=== PATIENT | male | born 1985 | race Caucasian/White ===

== ENCOUNTER 2018-03-20 01:09 | Inpatient (IN) | payer MEDICAID, OTHER ==
--- NOTE | 2018-03-20 01:53 | ED ---
Psych HPI - General Source: patient, RN notes reviewed Mode of arrival: ambulatory Limitations: no limitations <Pippa Carver - Last Filed: 03/20/18 03:43> <Mayi Jha - Last Filed: 03/20/18 05:16> - General Chief Complaint: Psychiatric Symptoms Stated Complaint: mental health Time Seen by Provider: 03/20/18 01:29 - History of Present Illness Initial Comments: This is a 32-year-old male who presents to the emergency department for mental health evaluation. Patient states that he was discharged from [facility] this past Monday. He states he is from [place], [place]. Patient states for the past couple of days he has been wandering around [place]. He states that today, he received multiple rides and walked from [place] to [place]. Patient reports being hospitalized 6 times since June for mental health. He states that while at [facility] his medications were changed around. He states that they stopped his Seroquel and started him on Strattera. Patient states that he did not like the way Strattera made him feel but that the staff at [facility] would not listen to him. Patient states that throughout the day today he has been having suicidal and homicidal thoughts. Patient states he is not normally an aggressive person and having homicidal thoughts are not normal for him. He reports having thoughts of throwing himself in front of traffic. Patient also reports auditory hallucinations. He states that he hears random, multiple voices but cannot make out what they're saying. He denies visual hallucinations. He denies alcohol or illicit drug use. 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 Patient states he has not had his medication since Monday when he was discharged. Patient denies any other medical issues. Denies any recent illnesses or infections. Denies recent fevers or chills, chest pain or shortness of breath, abdominal pain, nausea or vomiting. (Pippa Carver) - Related Data Allergies Allergy/AdvReac Type Severity Reaction Status Date / Time fentanyl Allergy Unknown Verified 03/20/18 01:29 haloperidol [From Haldol] Allergy Swelling Verified 03/20/18 01:29 Review of Systems ROS Other: All systems not noted in ROS Statement are negative. <Wen,Pippa M - Last Filed: 03/20/18 03:43> ROS Other: All systems not noted in ROS Statement are negative. <Mayi Jha P - Last Filed: 03/20/18 05:16> ROS Statement: Those systems with pertinent positive or pertinent negative responses have been documented in the HPI. 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 HEENT: Head atraumatic, normocephalic. Pupils are equal, round and reactive to light. Extraocular movements intact. Oropharynx moist without erythema or exudate. Neck: Supple. Normal ROM. Cardiovascular: Regular rate and rhythm. No murmurs, rubs or gallops. Chest symmetrical. Respiratory: Lungs clear to auscultation bilaterally. No wheezes, rales or rhonchi. Normal respiratory effort with no use of accessory muscles. Musculoskeletal: Normal ROM, no tenderness bilateral upper and lower extremities. Ambulating normally. Skin: [place], warm and dry without rashes or lesions. Neurological: Alert and oriented x3. CN II-XII grossly intact. Speech is fluent and answers are appropriate. No focal neuro deficits. Psychiatric: Anxious, pacing around the room. Talkative and forthcoming. (Pippa Carver) Course <Pippa Carver M - Last Filed: 03/20/18 03:43> <Mayi Jha P - Last Filed: 03/20/18 05:16> Vital Signs 03/20/18 01:23 Temperature 98 F Pulse Rate 107 H Respiratory 16 Rate Blood Pressure 127/81 O2 Sat by Pulse 98 Oximetry - Reevaluation(s) Reevaluation #1: At this time, laboratory studies are reviewed. Patient's Depakote level is subtherapeutic at 11.9. Patient admits to taking Depakote 500 mg 3 times per day. Scheduled dosing for Depakote is ordered. Patient will be given 1000 mg stat. 03/20/18 03:32 (Pippa Carver) Medical Decision Making - Lab Data Result diagrams: 03/20/18 02:40 03/20/18 02:40 <Pippa Carver - Last Filed: 03/20/18 03:43> - Lab Data Result diagrams: 03/20/18 02:40 03/20/18 02:40 <Mayi Jha - Last Filed: 03/20/18 05:16> - Medical Decision Making This is a 32-year-old male who presents to the emergency department for mental health evaluation. Patient was recently released from [facility] where patient states he was started on Strattera. He states he has been wandering around [place] for the past couple of days and walked/hitchhiked to [place] today. Patient reports suicidal and homicidal ideation. He denies any illicit drug use , however a urine drug screen reveals evidence for methamphetamine, amphetamine , benzodiazepines and marijuana. Patient reports a history of pseudoseizures. He states he takes Depakote 500mg 3 times per day. He reports not taking Depakote since being at [facility]. Level is subtherapeutic at 11.9. Scheduled and stat order for Depakote is placed. Patient was medically cleared and evaluated by [facility]. (Pippa Carver) She was seen and evaluated by [facility], they recommend discharge home with outpatient follow-up. Patient is agreeable. (Mayi Jha) - Lab Data Lab Results 03/20/18 03/20/18 03/20/18 Range/Units 02:40 02:40 02:51 WBC 5.7 (3.8-10.6) k/uL RBC 4.29 L (4.30-5.90) m/uL Hgb 13.4 (13.0-17.5) gm/dL Hct 41.9 (39.0-53.0) % MCV 97.7 (80.0-100.0) fL MCH 31.3 (25.0-35.0) pg MCHC 32.0 (31.0-37.0) g/dL RDW 13.3 (11.5-15.5) % Plt Count 211 (150-450) k/uL Neutrophils % 58 % Lymphocytes % 31 % Monocytes % 7 % Eosinophils % 1 % Basophils % 0 % Neutrophils # 3.3 (1.3-7.7) k/uL Lymphocytes # 1.8 (1.0-4.8) k/uL Monocytes # 0.4 (0-1.0) k/uL Eosinophils # 0.1 (0-0.7) k/uL Basophils # 0.0 (0-0.2) k/uL Sodium 140 (137-145) mmol/L Potassium 3.9 (3.5-5.1) mmol/L Chloride 109 H (98-107) mmol/L Carbon Dioxide 24 (22-30) mmol/L Anion Gap 7 mmol/L BUN 23 H (9-20) mg/dL Creatinine 0.69 (0.66-1.25) mg/dL Est GFR (CKD-EPI)AfAm >90 (>60 ml/min/1.73 sqM) Est GFR (CKD-EPI)NonAf >90 (>60 ml/min/1.73 sqM) Glucose 89 (74-99) mg/dL Calcium 9.4 (8.4-10.2) mg/dL Total Bilirubin 0.4 (0.2-1.3) mg/dL AST 47 (17-59) U/L ALT 39 (21-72) U/L Alkaline Phosphatase 52 (38-126) U/L Total Protein 6.4 (6.3-8.2) g/dL Albumin 3.8 (3.5-5.0) g/dL Urine Color Yellow Urine Appearance Clear (Clear) Urine pH 6.5 (5.0-8.0) Ur Specific [place] 1.025 (1.001-1.035) Urine Protein Trace H (Negative) Urine Glucose (UA) Negative (Negative) Urine Ketones Negative (Negative) Urine Blood Negative (Negative) Urine Nitrite Negative (Negative) Urine Bilirubin Negative (Negative) Urine Urobilinogen 2.0 (<2.0) mg/dL Ur Leukocyte Esterase Negative (Negative) Urine Opiates Screen Not Detected (NotDetected) Ur Oxycodone Screen Not Detected (NotDetected) Urine Methadone Screen Not Detected (NotDetected) Ur Propoxyphene Screen Not Detected (NotDetected) Ur Barbiturates Screen Not Detected (NotDetected) Valproic Acid 11.9 ug/mL U Tricyclic Antidepress Not Detected (NotDetected) Ur Phencyclidine Scrn Not Detected (NotDetected) Ur Amphetamines Screen Detected H (NotDetected) U Methamphetamines Scrn Detected H (NotDetected) U Benzodiazepines Scrn Detected H (NotDetected) Urine Cocaine Screen Not Detected (NotDetected) U Marijuana (THC) Screen Detected H (NotDetected) Disposition <Pippa Carver M - Last Filed: 03/20/18 03:43> Is patient prescribed a controlled substance at d/c from ED?: No <Mayi Jha P - Last Filed: 03/20/18 05:16> Clinical Impression: Depression Disposition: HOME SELF-CARE Condition: Good Instructions: Depression (ED) Referrals: None,Stated [Primary Care Provider] - 1-2 days
[2018-03-20 03:05] LABS: Basophils % (A) 0 %; Eosinophils # (A) 0.1 k/uL (0-0.7); Eosinophils % (A) 1 %; HCT 41.9 % (39.0-53.0); HGB 13.4 gm/dL (13.0-17.5); Lymphocytes # (A) 1.8 k/uL (1.0-4.8); Lymphocytes % (A) 31 %; MCH 31.3 pg (25.0-35.0); MCV 97.7 fL (80.0-100.0); Mean Platelet Volume 7.9; Monocytes # (A) 0.4 k/uL (0-1.0); Monocytes % (A) 7 %; Neutrophils # (A) 3.3 k/uL (1.3-7.7); Neutrophils % (A) 58 %; Platelet Count 211 k/uL (150-450); RBC 4.29 m/uL (4.30-5.90); RDW 13.3 % (11.5-15.5); WBC 5.7 k/uL (3.8-10.6)
[2018-03-20 03:06] LABS: Appearance,Urine Clear (Clear); Bilirubin,Urine Negative (Negative); Blood,Urine Negative (Negative); Color,Urine Yellow; Glucose,Urine (UA) Negative (Negative); Ketones,Urine Negative (Negative); Leukocyte Esterase,Urine Negative (Negative); Nitrite,Urine Negative (Negative); PH, Urine 6.5 (5.0-8.0); Protein,Urine Trace (Negative); Specific Gravity,Urine 1.025 (1.001-1.035)
[2018-03-20 03:15] LABS: ALT 39 U/L (21-72); AST 47 U/L (17-59); Albumin 3.8 g/dL (3.5-5.0); Alkaline Phosphatase 52 U/L (38-126); Anion Gap 7 mmol/L; Blood Urea Nitrogen 23 mg/dL (9-20); Calcium 9.4 mg/dL (8.4-10.2); Carbon Dioxide 24 mmol/L (22-30); Chloride 109 mmol/L (98-107); Glucose 89 mg/dL (74-99); Potassium 3.9 mmol/L (3.5-5.1); Sodium 140 mmol/L (137-145); Total Bilirubin 0.4 mg/dL (0.2-1.3); Total Protein 6.4 g/dL (6.3-8.2)
[2018-03-20 03:20] LABS: Valproic Acid (Depakene) 11.9 ug/mL
[2018-03-20 03:21] LABS: Amphetamine Screen,Urine Detected (NotDetected); Barbiturate Screen,Urine Not Detected (NotDetected); Benzodiazepines Screen,Urine Detected (NotDetected); Cocaine Screen,Urine Not Detected (NotDetected); Methadone Screen, Urine Not Detected (NotDetected); Opiate Screen,Urine Not Detected (NotDetected); Oxycodone Screen, Urine Not Detected (NotDetected); Phencyclidine Screen,Urine Not Detected (NotDetected); Tricyclic Antidepressant,Urine Not Detected (NotDetected); Urn Cannabinoid Scrn Detected (NotDetected)
[2018-03-20] MEDS ORDERED: DIVALPROEX 500 MG TABLET.DR PO STA (03:31)
[2018-03-20] MEDS ORDERED: MAGNESIUM HYDROXIDE 2,400 MG/10 ML CUP PO PRN (07:19)
[2018-03-20] MEDS: NICOTINE 14MG/24HR PATCH TRANSDERM SCH (08:04)
[2018-03-20] MEDS: DIVALPROEX 500 MG TABLET.DR PO SCH ×4 (08:05→21:21)
[2018-03-20 10:53] LABS: Basophils % (A) 1 %; Eosinophils # (A) 0.1 k/uL (0-0.7); Eosinophils % (A) 2 %; HCT 43.3 % (39.0-53.0); HGB 14.4 gm/dL (13.0-17.5); Lymphocytes # (A) 1.5 k/uL (1.0-4.8); Lymphocytes % (A) 30 %; MCH 32.7 pg (25.0-35.0); MCHC 33.3 g/dL (31.0-37.0); MCV 98.2 fL (80.0-100.0); Mean Platelet Volume 7.4; Monocytes # (A) 0.5 k/uL (0-1.0); Monocytes % (A) 9 %; Neutrophils # (A) 2.8 k/uL (1.3-7.7); Neutrophils % (A) 55 %; Platelet Count 233 k/uL (150-450); RBC 4.41 m/uL (4.30-5.90); RDW 13.3 % (11.5-15.5)
[2018-03-20 11:01] LABS: ALT 42 U/L (21-72); AST 47 U/L (17-59); Albumin 4.1 g/dL (3.5-5.0); Alkaline Phosphatase 54 U/L (38-126); Anion Gap 9 mmol/L; Blood Urea Nitrogen 22 mg/dL (9-20); Calcium 9.7 mg/dL (8.4-10.2); Carbon Dioxide 28 mmol/L (22-30); Chloride 103 mmol/L (98-107); Glucose 100 mg/dL (74-99); Potassium 4.3 mmol/L (3.5-5.1); Sodium 140 mmol/L (137-145); Total Bilirubin 0.5 mg/dL (0.2-1.3)
[2018-03-20 11:07] LABS: Valproic Acid (Depakene) <10.0 ug/mL
[2018-03-20] MEDS ORDERED: diphenhydrAMINE 50 MG/ML 1 ML VIAL IM PRN (11:55)
--- NOTE | 2018-03-20 12:02 | P.HP ---
Psychiatric H&P - . H&P Date: 03/20/18 History & Physical: Allergies Allergy/AdvReac Type Severity Reaction Status Date / Time fentanyl Allergy Unknown Verified 03/20/18 09:14 haloperidol [From Haldol] Allergy Swelling Verified 03/20/18 09:14 Vital Signs Temp 97.3 F L 03/20/18 09:28 Pulse 92 03/20/18 09:28 Resp 20 03/20/18 09:28 BP 124/82 03/20/18 05:49 Pulse Ox 98 03/20/18 09:28 Intake & Output 03/19/18 03/20/18 03/20/18 18:59 06:59 18:59 Weight 78.471 kg 72.66 kg Laboratory Last Values WBC 5.0 k/uL (3.8-10.6) 03/20/18 10:23 RBC 4.41 m/uL (4.30-5.90) 03/20/18 10:23 Hgb 14.4 gm/dL (13.0-17.5) 03/20/18 10:23 Hct 43.3 % (39.0-53.0) 03/20/18 10:23 MCV 98.2 fL (80.0-100.0) 03/20/18 10:23 MCH 32.7 pg (25.0-35.0) 03/20/18 10:23 MCHC 33.3 g/dL (31.0-37.0) 03/20/18 10:23 RDW 13.3 % (11.5-15.5) 03/20/18 10:23 Plt Count 233 k/uL (150-450) 03/20/18 10:23 Neutrophils % 55 % 03/20/18 10:23 Lymphocytes % 30 % 03/20/18 10:23 Monocytes % 9 % 03/20/18 10:23 Eosinophils % 2 % 03/20/18 10:23 Basophils % 1 % 03/20/18 10:23 Neutrophils # 2.8 k/uL (1.3-7.7) 03/20/18 10:23 Lymphocytes # 1.5 k/uL (1.0-4.8) 03/20/18 10:23 Monocytes # 0.5 k/uL (0-1.0) 03/20/18 10:23 Eosinophils # 0.1 k/uL (0-0.7) 03/20/18 10:23 Basophils # 0.0 k/uL (0-0.2) 03/20/18 10:23 Sodium 140 mmol/L (137-145) 03/20/18 10:23 Potassium 4.3 mmol/L (3.5-5.1) 03/20/18 10:23 Chloride 103 mmol/L (98-107) 03/20/18 10:23 Carbon Dioxide 28 mmol/L (22-30) 03/20/18 10:23 Anion Gap 9 mmol/L 03/20/18 10:23 BUN 22 mg/dL (9-20) H 03/20/18 10:23 Creatinine 0.75 mg/dL (0.66-1.25) 03/20/18 10:23 Est GFR (CKD-EPI)AfAm >90 (>60 ml/min/1.73 sqM) 03/20/18 10:23 Est GFR (CKD-EPI)NonAf >90 (>60 ml/min/1.73 sqM) 03/20/18 10:23 Glucose 100 mg/dL (74-99) H 03/20/18 10:23 Calcium 9.7 mg/dL (8.4-10.2) 03/20/18 10:23 Total Bilirubin 0.5 mg/dL (0.2-1.3) 03/20/18 10:23 AST 47 U/L (17-59) 03/20/18 10:23 ALT 42 U/L (21-72) 03/20/18 10:23 Alkaline Phosphatase 54 U/L (38-126) 03/20/18 10:23 Total Protein 7.0 g/dL (6.3-8.2) 03/20/18 10:23 Albumin 4.1 g/dL (3.5-5.0) 03/20/18 10:23 TSH 1.660 mIU/L (0.465-4.680) 03/20/18 10:23 Urine Color Yellow 03/20/18 02:51 Urine Appearance Clear (Clear) 03/20/18 02:51 Urine pH 6.5 (5.0-8.0) 03/20/18 02:51 Ur Specific [place] 1.025 (1.001-1.035) 03/20/18 02:51 Urine Protein Trace (Negative) H 03/20/18 02:51 Urine Glucose (UA) Negative (Negative) 03/20/18 02:51 Urine Ketones Negative (Negative) 03/20/18 02:51 Urine Blood Negative (Negative) 03/20/18 02:51 Urine Nitrite Negative (Negative) 03/20/18 02:51 Urine Bilirubin Negative (Negative) 03/20/18 02:51 Urine Urobilinogen 2.0 mg/dL (<2.0) 03/20/18 02:51 Ur Leukocyte Esterase Negative (Negative) 03/20/18 02:51 Urine Opiates Screen Not Detected (NotDetected) 03/20/18 02:51 Ur Oxycodone Screen Not Detected (NotDetected) 03/20/18 02:51 Urine Methadone Screen Not Detected (NotDetected) 03/20/18 02:51 Ur Propoxyphene Screen Not Detected (NotDetected) 03/20/18 02:51 Ur Barbiturates Screen Not Detected (NotDetected) 03/20/18 02:51 Valproic Acid <10.0 ug/mL 03/20/18 10:23 U Tricyclic Antidepress Not Detected (NotDetected) 03/20/18 02:51 Ur Phencyclidine Scrn Not Detected (NotDetected) 03/20/18 02:51 Ur Amphetamines Screen Detected (NotDetected) H 03/20/18 02:51 U Methamphetamines Scrn Detected (NotDetected) H 03/20/18 02:51 U Benzodiazepines Scrn Detected (NotDetected) H 03/20/18 02:51 Urine Cocaine Screen Not Detected (NotDetected) 03/20/18 02:51 U Marijuana (THC) Screen Detected (NotDetected) H 03/20/18 02:51 Assessment and Plan Assessment: General Chief Complaint: Psychiatric Symptoms Stated Complaint: mental health Time Seen by Provider: 03/20/18 - History of Present Illness Initial Comments: This is a 32-year-old male who presents to the emergency department for mental health evaluation. Patient states that he was discharged from [facility] this past Monday. He states he is from [place], [place]. Patient states for the past couple of days he has been wandering around [place]. He states that today, he received multiple rides and walked from [place] to [place]. Patient reports being hospitalized 6 times since June for mental health. He states that while at [facility] his medications were changed around. He states that they stopped his Seroquel and started him on Strattera. Patient states that he did not like the way Strattera made him feel but that the staff at [facility] would not listen to him. Patient states that throughout the day today he has been having suicidal and homicidal thoughts. Patient states he is not normally an aggressive person and having homicidal thoughts are not normal for him. He reports having thoughts of throwing himself in front of traffic. Patient also reports auditory hallucinations. He states that he hears random, multiple voices but cannot make out what they're saying. He denies visual hallucinations. He denies alcohol or illicit drug use. 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 Patient states he has not had his medication since Monday when he was discharged. Patient denies any other medical issues. Denies any recent illnesses or infections. Denies recent fevers or chills, chest pain or shortness of breath, abdominal pain, nausea or vomiting. Musculoskeletal Examination - Abnormal/Involuntary Movements: [none] Strength: [greater than antigravity (greater than/equal to 3/5) in all extremities] Muscle Tone: [no impairment] Gait: [grossly normal] Station: [grossly normal] Mental Status Examination - General Appearance: [disheveled, casual, bizarre, appears stated age Speech/Language: [rapid, rambled, hesitant, monotone, expressive, soft Attitude/Behavior: [ guarded, irritable, withdrawn, indifferent, other] Mood: [ depressed, euphoric, anxious, elated, irritable, angry, fearful, hopelessness] Affect: [ flat, incongruent, labile] Orientation: [not time, person, not place situation] Thought Content: [delusions] Risk Factors: [suicidal (ideations, plan) Perception: [ hallucinations Thought Processes: [ concrete] Concentration/Attention Span: [, impaired] [Per observation and interview with the patient] Recent Memory: [impaired] [0out of 3 in 3 minutes] Remote Memory: [ impaired] [past events, as related history] Intelligence: [below averag] [based on history, based on vocabulary, syntax, grammar, and content] Judgement: [poor] [per patient's behavior/history of present illness] Insight: [ poor] [understanding severity of illness/history of present illness] Admitting Diagnosis: [bipolar affective disorder acute psychosis] Patient Strengths - Personal Skills: [] Achievements: [] Able to vocalize needs: [x] Patient Limitations: [medication, non-compliance, pathological/unsupported environment, no interests, intellectual impairment, complicated medical illness , legal issues, lack of social supports, other] Initial Plan of Care: [admission to psych unit, medical evaluation and medicine , social work, recreation therapy mora and milieu ] Estimated Length of Stay: [5-7] Initial Discharge Plan: [home, [facility], referred to therapist, partial hospital, intensive outpatient, residential placement, other] Prognosis: [good, fair, guarded] Justification for Inpatient Hospitalization - [Hallucinations, delusions, agitation, anxiety, depression resulting in significant loss of functioning.] [Dangerous to self, others, or property with need for controlled environment.] [Emotional or behavioral conditions and complications requiring 24 hour medical and nursing care.] [Need for special drug therapy, or other therapeutic program requiring continuous hospitalization.] [Failure of social or occupational functioning.] [Inability to meet basic life and health needs.] [Legally mandated admission.] [ start prolixin, prn thorazine olus benadryl and depakote Time with Patient: Greater than 30
--- NOTE | 2018-03-20 16:51 | P.PN ---
Progress Note - Text Progress Note Date: 03/20/18 I attempted to see the patient around 4:15PM. Patient is laying on the floor along the hallway. Patient states he has had his blood work done and has no medical issues. Patient refuses to see me for a medical H&P. Nursing team and staff were notified and they will contact us for any specific concerns or if patient agreeable in the future.
[2018-03-20] MEDS: ACETAMINOPHEN TAB 325 MG TAB PO PRN (22:12)
[2018-03-21 02:01] LABS: Cholesterol 177 mg/dL (<200); HDL Cholesterol 41 mg/dL (40-60); LDL Cholesterol,Calculated 127 mg/dL (0-99); Triglycerides 46 mg/dL (<150)
[2018-03-21] MEDS: ACETAMINOPHEN TAB 325 MG TAB PO PRN ×2 (02:57→14:19)
[2018-03-21] MEDS: NICOTINE 14MG/24HR PATCH TRANSDERM SCH (08:54)
[2018-03-21] MEDS: DIVALPROEX 500 MG TABLET.DR PO SCH ×3 (08:54→20:45)
[2018-03-21] MEDS ORDERED: HALOPERIDOL LACTATE 5 MG/ML 1 ML VIAL IM PRN (09:47)
--- NOTE | 2018-03-21 11:58 | P.PN ---
Subjective Progress Note Date: 03/21/18 Principal diagnosis: Schizoaffective Today he is resistant to any medications refuse medications last night and talked with him about his on a court order for psychiatric treatment and he must take medications Objective - Vital Signs Vital signs: Vital Signs Temp 97.3 F L 03/20/18 09:28 Pulse 110 H 03/20/18 18:44 Resp 18 03/20/18 18:44 BP 126/85 03/20/18 18:44 Pulse Ox 98 03/20/18 09:28 Intake & Output 03/20/18 03/21/18 03/21/18 18:59 06:59 18:59 Weight 72.66 kg - Labs CBC & Chem 7: 03/20/18 10:23 03/20/18 10:23 Labs: Abnormal Lab Results - Last 24 Hours (Table) 03/20/18 Range/Units 10:28 LDL Cholesterol, Calc 127 H (0-99) mg/dL Assessment and Plan Assessment: General Chief Complaint: Psychiatric Symptoms Stated Complaint: mental health Time Seen by Provider: 03/20/18 - History of Present Illness Initial Comments: This is a 32-year-old male who presents to the emergency department for mental health evaluation. Patient states that he was discharged from [facility] this past Monday. He states he is from [place], [place]. Patient states for the past couple of days he has been wandering around [place]. He states that today, he received multiple rides and walked from [place] to [place]. Patient reports being hospitalized 6 times since June for mental health. He states that while at [facility] his medications were changed around. He states that they stopped his Seroquel and started him on Strattera. Patient states that he did not like the way Strattera made him feel but that the staff at [facility] would not listen to him. Patient states that throughout the day today he has been having suicidal and homicidal thoughts. Patient states he is not normally an aggressive person and having homicidal thoughts are not normal for him. He reports having thoughts of throwing himself in front of traffic. Patient also reports auditory hallucinations. He states that he hears random, multiple voices but cannot make out what they're saying. He denies visual hallucinations. He denies alcohol or illicit drug use. 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 Patient states he has not had his medication since Monday when he was discharged. Patient denies any other medical issues. Denies any recent illnesses or infections. Denies recent fevers or chills, chest pain or shortness of breath, abdominal pain, nausea or vomiting. Musculoskeletal Examination - Abnormal/Involuntary Movements: [none] Strength: [greater than antigravity (greater than/equal to 3/5) in all extremities] Muscle Tone: [no impairment] Gait: [grossly normal] Station: [grossly normal] Mental Status Examination - General Appearance: [disheveled, casual, bizarre, appears stated age Speech/Language: [rapid, rambled, hesitant, monotone, expressive, soft Attitude/Behavior: [ guarded, irritable, withdrawn, indifferent, other] Mood: [ depressed, euphoric, anxious, elated, irritable, angry, fearful, hopelessness] Affect: [ flat, incongruent, labile] Orientation: [not time, person, not place situation] Thought Content: [delusions] Risk Factors: [suicidal (ideations, plan) Perception: [ hallucinations Thought Processes: [ concrete] Concentration/Attention Span: [, impaired] [Per observation and interview with the patient] Recent Memory: [impaired] [0out of 3 in 3 minutes] Remote Memory: [ impaired] [past events, as related history] Intelligence: [below averag] [based on history, based on vocabulary, syntax, grammar, and content] Judgement: [poor] [per patient's behavior/history of present illness] Insight: [ poor] [understanding severity of illness/history of present illness] Admitting Diagnosis: [bipolar affective disorder acute psychosis] Patient Strengths - Personal Skills: [] Achievements: [] Able to vocalize needs: [x] Patient Limitations: [medication, non-compliance, pathological/unsupported environment, no interests, intellectual impairment, complicated medical illness , legal issues, lack of social supports, other] Initial Plan of Care: [admission to psych unit, medical evaluation and medicine , social work, recreation therapy mora and milieu ] Estimated Length of Stay: [5-7] Initial Discharge Plan: [home, [facility], referred to therapist, partial hospital, intensive outpatient, residential placement, other] Prognosis: [good, fair, guarded] Justification for Inpatient Hospitalization - [Hallucinations, delusions, agitation, anxiety, depression resulting in significant loss of functioning.] [Dangerous to self, others, or property with need for controlled environment.] [Emotional or behavioral conditions and complications requiring 24 hour medical and nursing care.] [Need for special drug therapy, or other therapeutic program requiring continuous hospitalization.] [Failure of social or occupational functioning.] [Inability to meet basic life and health needs.] [Legally mandated admission.] [ (1) Schizoaffective disorder, bipolar type Current Visit: Yes Status: Acute Priority: High Code(s): F25.0 - SCHIZOAFFECTIVE DISORDER, BIPOLAR TYPE SNOMED Code(s): 94296997 Plan: Discussed health care plan today who started out on 3 mg with the daily titration to reach maximum 9 mg and converted into injectable
[2018-03-21] MEDS ORDERED: PALIPERIDONE 6 MG TAB.ER.24 PO SCH (21:00)
[2018-03-22] MEDS: DIVALPROEX 500 MG TABLET.DR PO SCH ×3 (09:17→21:38)
[2018-03-22] MEDS: NICOTINE 14MG/24HR PATCH TRANSDERM SCH (09:17)
--- NOTE | 2018-03-22 12:34 | P.PN ---
Subjective Progress Note Date: 03/22/18 Principal diagnosis: Schizoaffective Today he is resistant to any medications refuse medications last night and talked with him about his on a court order for psychiatric treatment and he must take medications Objective - Vital Signs Vital signs: Vital Signs Temp 97.3 F L 03/20/18 09:28 Pulse 117 H 03/21/18 20:47 Resp 20 03/21/18 14:19 BP 131/94 03/21/18 20:47 Pulse Ox 98 03/20/18 09:28 - Labs CBC & Chem 7: 03/20/18 10:23 03/20/18 10:23 Assessment and Plan Assessment: General Chief Complaint: Psychiatric Symptoms Stated Complaint: mental health Time Seen by Provider: 03/20/18 - History of Present Illness Initial Comments: This is a 32-year-old male who presents to the emergency department for mental health evaluation. Patient states that he was discharged from [facility] this past Monday. He states he is from [place], [place]. Patient states for the past couple of days he has been wandering around [place]. He states that today, he received multiple rides and walked from [place] to [place]. Patient reports being hospitalized 6 times since June for mental health. He states that while at [facility] his medications were changed around. He states that they stopped his Seroquel and started him on Strattera. Patient states that he did not like the way Strattera made him feel but that the staff at [facility] would not listen to him. Patient states that throughout the day today he has been having suicidal and homicidal thoughts. Patient states he is not normally an aggressive person and having homicidal thoughts are not normal for him. He reports having thoughts of throwing himself in front of traffic. Patient also reports auditory hallucinations. He states that he hears random, multiple voices but cannot make out what they're saying. He denies visual hallucinations. He denies alcohol or illicit drug use. 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 Patient states he has not had his medication since Monday when he was discharged. Patient denies any other medical issues. Denies any recent illnesses or infections. Denies recent fevers or chills, chest pain or shortness of breath, abdominal pain, nausea or vomiting. Musculoskeletal Examination - Abnormal/Involuntary Movements: [none] Strength: [greater than antigravity (greater than/equal to 3/5) in all extremities] Muscle Tone: [no impairment] Gait: [grossly normal] Station: [grossly normal] Mental Status Examination - General Appearance: [disheveled, casual, bizarre, appears stated age Speech/Language: [rapid, rambled, hesitant, monotone, expressive, soft Attitude/Behavior: [ guarded, irritable, withdrawn, indifferent, other] Mood: [ depressed, euphoric, anxious, elated, irritable, angry, fearful, hopelessness] Affect: [ flat, incongruent, labile] Orientation: [not time, person, not place situation] Thought Content: [delusions] Risk Factors: [suicidal (ideations, plan) Perception: [ hallucinations Thought Processes: [ concrete] Concentration/Attention Span: [, impaired] [Per observation and interview with the patient] Recent Memory: [impaired] [0out of 3 in 3 minutes] Remote Memory: [ impaired] [past events, as related history] Intelligence: [below averag] [based on history, based on vocabulary, syntax, grammar, and content] Judgement: [poor] [per patient's behavior/history of present illness] Insight: [ poor] [understanding severity of illness/history of present illness] Admitting Diagnosis: [bipolar affective disorder acute psychosis and PTSD Patient Strengths - Personal Skills: [] Achievements: [] Able to vocalize needs: [x] Patient Limitations: [medication, non-compliance, pathological/unsupported environment, no interests, intellectual impairment, complicated medical illness , legal issues, lack of social supports, other] Initial Plan of Care: [admission to psych unit, medical evaluation and medicine , social work, recreation therapy mora and milieu ] Estimated Length of Stay: [5-7] Initial Discharge Plan: [home, [facility], referred to therapist, partial hospital, intensive outpatient, residential placement, other] Prognosis: [good, fair, guarded] Justification for Inpatient Hospitalization - [Hallucinations, delusions, agitation, anxiety, depression resulting in significant loss of functioning.] [Dangerous to self, others, or property with need for controlled environment.] [Emotional or behavioral conditions and complications requiring 24 hour medical and nursing care.] [Need for special drug therapy, or other therapeutic program requiring continuous hospitalization.] [Failure of social or occupational functioning.] [Inability to meet basic life and health needs.] [Legally mandated admission.] [ (1) Schizoaffective disorder, bipolar type Current Visit: Yes Status: Acute Priority: High Code(s): F25.0 - SCHIZOAFFECTIVE DISORDER, BIPOLAR TYPE SNOMED Code(s): 88533741 Plan: Discussed health care plan today who started out on 3 mg with the daily titration to reach maximum 9 mg and converted into injectable will add clonidine 0.2 mg 3 times a day for anxiety and elevated heart rate Time with Patient: Less than 30
[2018-03-22] MEDS: cloNIDine HCL 0.2 MG TAB PO SCH ×2 (16:14→21:38)
[2018-03-22] MEDS: PALIPERIDONE 3 MG TAB.ER.24 PO SCH (21:38)
[2018-03-23] MEDS: DIVALPROEX 500 MG TABLET.DR PO SCH ×3 (11:52→21:34)
[2018-03-23] MEDS: cloNIDine HCL 0.2 MG TAB PO SCH ×3 (11:52→21:34)
[2018-03-23] MEDS: NICOTINE 14MG/24HR PATCH TRANSDERM SCH (11:55)
--- NOTE | 2018-03-23 12:12 | P.PN ---
Subjective Progress Note Date: 03/23/18 Principal diagnosis: Schizoaffective Today he is resistant to any medications refuse medications last night and talked with him about his on a court order for psychiatric treatment and he must take medications Objective - Vital Signs Vital signs: Vital Signs Temp 98.1 F 03/23/18 06:44 Pulse 110 H 03/23/18 06:44 Resp 18 03/23/18 06:44 BP 117/77 03/23/18 06:44 Pulse Ox 98 03/20/18 09:28 - Labs CBC & Chem 7: 03/20/18 10:23 03/20/18 10:23 Assessment and Plan Assessment: Mental Status Examination - General Appearance: [disheveled, casual, bizarre, appears stated age Speech/Language: [rapid, rambled, hesitant, monotone, expressive, soft Attitude/Behavior: [ guarded, irritable, withdrawn, indifferent, other] Mood: [ depressed, euphoric, anxious, elated, irritable, angry, fearful, hopelessness] Affect: [ flat, incongruent, labile] Orientation: [not time, person, not place situation] Thought Content: [delusions] Risk Factors: [suicidal (ideations, plan) Perception: [ hallucinations Thought Processes: [ concrete] Concentration/Attention Span: [, impaired] [Per observation and interview with the patient] Recent Memory: [impaired] [0out of 3 in 3 minutes] Remote Memory: [ impaired] [past events, as related history] Intelligence: [below averag] [based on history, based on vocabulary, syntax, grammar, and content] Judgement: [poor] [per patient's behavior/history of present illness] Insight: [ poor] [understanding severity of illness/history of present illness] Admitting Diagnosis: [bipolar affective disorder acute psychosis and PTSD Patient Strengths - Personal Skills: [] Achievements: [] Able to vocalize needs: [x] Patient Limitations: [medication, non-compliance, pathological/unsupported environment, no interests, intellectual impairment, complicated medical illness , legal issues, lack of social supports, other] Initial Plan of Care: [admission to psych unit, medical evaluation and medicine , social work, recreation therapy mora and milieu ] Estimated Length of Stay: [5-7] Initial Discharge Plan: [home, [facility], referred to therapist Prognosis: [good] Justification for Inpatient Hospitalization - [Hallucinations, delusions, agitation, anxiety, depression resulting in significant loss of functioning.] [Dangerous to self, others, or property with need for controlled environment.] [Emotional or behavioral conditions and complications requiring 24 hour medical and nursing care.] [Need for special drug therapy, or other therapeutic program requiring continuous hospitalization.] [Failure of social or occupational functioning.] [Inability to meet basic life and health needs.] [Legally mandated admission.] [ (1) Schizoaffective disorder, bipolar type Current Visit: Yes Status: Acute Priority: High Code(s): F25.0 - SCHIZOAFFECTIVE DISORDER, BIPOLAR TYPE SNOMED Code(s): 98033944 Plan: Discussed health care plan 9 mg and converted into injectable will add clonidine 0.2 mg 3 times a day for anxiety and elevated heart rateand will add cogentin
[2018-03-23] MEDS: PALIPERIDONE 3 MG TAB.ER.24 PO SCH (21:34)
[2018-03-23] MEDS: BENZTROPINE MESYLATE 0.5 MG TAB PO SCH (21:34)
[2018-03-23] MEDS: SODIUM CHLORIDE 0.65% NASAL SPRAY 44 ML BTL NASAL PRN (22:39)
[2018-03-24] MEDS: SODIUM CHLORIDE 0.65% NASAL SPRAY 44 ML BTL NASAL PRN ×2 (01:20→21:11)
[2018-03-24] MEDS: BENZTROPINE MESYLATE 0.5 MG TAB PO SCH ×2 (11:10→21:10)
[2018-03-24] MEDS: DIVALPROEX 500 MG TABLET.DR PO SCH ×3 (11:10→21:10)
[2018-03-24] MEDS: cloNIDine HCL 0.2 MG TAB PO SCH ×3 (11:10→21:10)
[2018-03-24] MEDS: NICOTINE 14MG/24HR PATCH TRANSDERM SCH (11:11)
--- NOTE | 2018-03-24 16:45 | P.PN ---
Progress Note - Text Progress Note Date: 03/24/18 Interval history: Patient is seen in cross coverage today. He does report that his mood overall is doing a little better, still depressed and mood could be further improved. He does seem to report sleeping better last night. He does talk about history of social anxiety. He does not seem to voice any adverse psychotropic medication side effects. Mental status exam: He is alert and cooperative with the interview. His speech is fluent, not rapid or pressured. Thought processes are organized. His mood is described as a little better, still depressed. He denies any thoughts of harm to self today. In reports he feels safe here on the unit. He does not voice any thoughts of harm to others. No evidence of active psychosis. Plan: Patient will be maintained on current psychotropic medication regimen. We 'll continue to monitor his ongoing response to treatment monitor for any medication side effects.
[2018-03-24] MEDS: PALIPERIDONE 3 MG TAB.ER.24 PO SCH (21:10)
[2018-03-25] MEDS: BENZTROPINE MESYLATE 0.5 MG TAB PO SCH ×2 (09:48→21:12)
[2018-03-25] MEDS: DIVALPROEX 500 MG TABLET.DR PO SCH ×3 (09:48→23:43)
[2018-03-25] MEDS: cloNIDine HCL 0.2 MG TAB PO SCH ×3 (09:48→23:42)
[2018-03-25] MEDS: NICOTINE 14MG/24HR PATCH TRANSDERM SCH (09:48)
--- NOTE | 2018-03-25 16:18 | P.PN ---
Progress Note - Text Progress Note Date: 03/25/18 Interval history: Patient is seen again in cross coverage today. He states that last night he was having some thoughts of harm to self as well as this morning. He states that if he is feeling that way he'll try to sit to where the staff can see him. He is encouraged to go to staff if he is struggling. He states he's had a few nose bleeds today he thinks related to the dryness. He has had that before. Mental status exam: He is alert and cooperative with the interview. His speech is fluent, not rapid or pressured. Thought processes organized. His mood he describes is fluctuating some. He does describe having some on and off thoughts of harm to self but relays that he is safe here in the hospital. He does not voice any thoughts of harm to others. No evidence of psychosis or any agitation. Plan: Patient will be maintained on current psychotropic medication regimen. Continue to monitor for any medication side effects and monitor his ongoing response to treatment. Continue to monitor regarding suicidal ideations. He is encouraged to go to staff if he is struggling
[2018-03-25] MEDS: PALIPERIDONE 3 MG TAB.ER.24 PO SCH (23:42)
[2018-03-26] MEDS: DIVALPROEX 500 MG TABLET.DR PO SCH ×2 (02:22→08:35)
[2018-03-26] MEDS: NICOTINE 14MG/24HR PATCH TRANSDERM SCH (08:34)
[2018-03-26] MEDS: cloNIDine HCL 0.2 MG TAB PO SCH ×3 (08:35→20:54)
[2018-03-26] MEDS: BENZTROPINE MESYLATE 0.5 MG TAB PO SCH ×2 (08:35→20:54)
--- NOTE | 2018-03-26 11:55 | P.PN ---
Subjective Progress Note Date: 03/26/18 Principal diagnosis: Schizoaffective Today he is resistant to any medications refuse medications last night with a resultant seizure not witnesssed by staff but roomate and talked with him about his on a court order for psychiatric treatment and he must take medications Objective - Vital Signs Vital signs: Vital Signs Temp 98.1 F 03/25/18 06:59 Pulse 110 H 03/26/18 08:37 Resp 18 03/26/18 08:37 BP 114/72 03/26/18 08:37 Pulse Ox 98 03/20/18 09:28 - Labs CBC & Chem 7: 03/20/18 10:23 03/20/18 10:23 Assessment and Plan Assessment: Mental Status Examination - General Appearance: [disheveled, casual, bizarre, appears stated age Speech/Language: [rapid, rambled, hesitant, monotone, expressive, soft Attitude/Behavior: [ guarded, irritable, withdrawn, indifferent, other] Mood: [ depressed, euphoric, anxious, elated, irritable, angry, fearful, hopelessness] Affect: [ flat, incongruent, labile] Orientation: [not time, person, not place situation] Thought Content: [delusions] Risk Factors: [suicidal (ideations, plan) Perception: [ hallucinations Thought Processes: [ concrete] Concentration/Attention Span: [, impaired] [Per observation and interview with the patient] Recent Memory: [impaired] [0out of 3 in 3 minutes] Remote Memory: [ impaired] [past events, as related history] Intelligence: [below averag] [based on history, based on vocabulary, syntax, grammar, and content] Judgement: [poor] [per patient's behavior/history of present illness] Insight: [ poor] [understanding severity of illness/history of present illness] Admitting Diagnosis: [bipolar affective disorder acute psychosis and PTSD Patient Strengths - Personal Skills: [] Achievements: [] Able to vocalize needs: [x] Patient Limitations: [medication, non-compliance, pathological/unsupported environment, no interests, intellectual impairment, complicated medical illness , legal issues, lack of social supports, other] Initial Plan of Care: [admission to psych unit, medical evaluation and medicine , social work, recreation therapy mora and milieu ] Increase his depakote 1,000 ER dose in am and again discussed with him that he needs to take his medications Estimated Length of Stay: [5] Initial Discharge Plan: [home, [facility], referred to therapist Prognosis: [good] Justification for Inpatient Hospitalization - [Hallucinations, delusions, agitation, anxiety, depression resulting in significant loss of functioning.] [Dangerous to self, others, or property with need for controlled environment.] [Emotional or behavioral conditions and complications requiring 24 hour medical and nursing care.] [Need for special drug therapy, or other therapeutic program requiring continuous hospitalization.] [Failure of social or occupational functioning.] [Inability to meet basic life and health needs.] [Legally mandated admission.] [ (1) Schizoaffective disorder, bipolar type Current Visit: Yes Status: Acute Priority: High Code(s): F25.0 - SCHIZOAFFECTIVE DISORDER, BIPOLAR TYPE SNOMED Code(s): 04456462
[2018-03-26] MEDS: PALIPERIDONE 3 MG TAB.ER.24 PO SCH (20:53)
[2018-03-27] MEDS: cloNIDine HCL 0.2 MG TAB PO SCH ×3 (09:00→21:39)
[2018-03-27] MEDS: BENZTROPINE MESYLATE 0.5 MG TAB PO SCH ×2 (09:00→21:38)
[2018-03-27] MEDS: DIVALPROEX ER 500 MG TAB.ER.24H PO SCH (09:00)
--- NOTE | 2018-03-27 10:33 | P.PN ---
Subjective Progress Note Date: 03/27/18 Principal diagnosis: Schizoaffective He is taking his medications isolated to his room with a one-to-one and still has suicidal ideation depression rated as 8 out of 10 anxiety 8 out of 10 denies any auditory or visual hallucinations Objective - Vital Signs Vital signs: Vital Signs Temp 98.1 F 03/25/18 06:59 Pulse 110 H 03/26/18 08:37 Resp 18 03/26/18 08:37 BP 114/72 03/26/18 08:37 Pulse Ox 98 03/20/18 09:28 - Labs CBC & Chem 7: 03/20/18 10:23 03/20/18 10:23 Assessment and Plan Assessment: Mental Status Examination - General Appearance: [disheveled, casual, bizarre, appears stated age Speech/Language: [rapid, rambled, hesitant, monotone, expressive, soft Attitude/Behavior: [ guarded, irritable, withdrawn, indifferent, other] Mood: [ depressed, euphoric, anxious, elated, irritable, angry, fearful, hopelessness] Affect: [ flat, incongruent, labile] Orientation: [not time, person, not place situation] Thought Content: [delusions] Risk Factors: [suicidal (ideations, plan) Perception: [ hallucinations Thought Processes: [ concrete] Concentration/Attention Span: [, impaired] [Per observation and interview with the patient] Recent Memory: [impaired] [0out of 3 in 3 minutes] Remote Memory: [ impaired] [past events, as related history] Intelligence: [below averag] [based on history, based on vocabulary, syntax, grammar, and content] Judgement: [poor] [per patient's behavior/history of present illness] Insight: [ poor] [understanding severity of illness/history of present illness] Admitting Diagnosis: [bipolar affective disorder acute psychosis and PTSD Patient Strengths - Personal Skills: [] Achievements: [] Able to vocalize needs: [x] Patient Limitations: [medication, non-compliance, pathological/unsupported environment, no interests, intellectual impairment, complicated medical illness , legal issues, lack of social supports, other] Initial Plan of Care: [admission to psych unit, medical evaluation and medicine , social work, recreation therapy mora and milieu ] Increase his depakote 1,000 ER dose in am and again discussed with him that he needs to take his medications increased his Invega to 12 mg at bedtime Estimated Length of Stay: [5] Initial Discharge Plan: [home, [facility], referred to therapist Prognosis: [good] Justification for Inpatient Hospitalization - [Hallucinations, delusions, agitation, anxiety, depression resulting in significant loss of functioning.] [Dangerous to self, others, or property with need for controlled environment.] [Emotional or behavioral conditions and complications requiring 24 hour medical and nursing care.] [Need for special drug therapy, or other therapeutic program requiring continuous hospitalization.] [Failure of social or occupational functioning.] [Inability to meet basic life and health needs.] [Legally mandated admission.] [ (1) Schizoaffective disorder, bipolar type Current Visit: Yes Status: Acute Priority: High Code(s): F25.0 - SCHIZOAFFECTIVE DISORDER, BIPOLAR TYPE SNOMED Code(s): 15756309 (2) Suicidal behavior with attempted self-injury Current Visit: Yes Status: Acute Priority: High Code(s): T14.91XA - SUICIDE ATTEMPT, INITIAL ENCOUNTER SNOMED Code(s): 806140364 Plan: Discussed health care plan 12 mg and will convert into injectable will add clonidine 0.2 mg 3 times a day for anxiety and elevated heart rate and will add cogentin. EKG is ordered due to drug drug interactions.
[2018-03-27] MEDS: NICOTINE 14MG/24HR PATCH TRANSDERM SCH (11:25)
[2018-03-27] MEDS: hydrOXYzine PAMOATE 25 MG CAP PO PRN (15:07)
[2018-03-27] MEDS ORDERED: PALIPERIDONE 6 MG TAB.ER.24 PO SCH (21:00)
[2018-03-28] MEDS: chlorproMAZINE 25 MG/ML 2 ML AMP IM PRN ×2 (00:20→18:14)
--- NOTE | 2018-03-28 10:10 | P.PN ---
Subjective Progress Note Date: 03/28/18 Principal diagnosis: Schizoaffective He is taking his medications isolated to his room with a one-to-one and still has suicidal ideation depression rated as 8 out of 10 anxiety 8 out of 10 denies any auditory or visual hallucinations Objective - Vital Signs Vital signs: Vital Signs Temp 98.1 F 03/25/18 06:59 Pulse 106 H 03/27/18 21:37 Resp 16 03/27/18 21:37 BP 114/77 03/27/18 21:37 Pulse Ox 98 03/20/18 09:28 Intake & Output 03/27/18 03/28/18 03/28/18 18:59 06:59 18:59 Weight 72.66 kg - Labs CBC & Chem 7: 03/20/18 10:23 03/20/18 10:23 Assessment and Plan Assessment: Mental Status Examination - General Appearance: [disheveled, casual, bizarre, appears stated age Speech/Language: [rapid, rambled, hesitant, monotone, expressive, soft Attitude/Behavior: [ guarded, irritable, withdrawn, indifferent, other] Mood: [ depressed, euphoric, anxious, elated, irritable, angry, fearful, hopelessness] Affect: [ flat, incongruent, labile] Orientation: [not time, person, not place situation] Thought Content: [delusions] Risk Factors: [suicidal (ideations, plan) Perception: [ hallucinations Thought Processes: [ concrete] Concentration/Attention Span: [, impaired] [Per observation and interview with the patient] Recent Memory: [impaired] [0out of 3 in 3 minutes] Remote Memory: [ impaired] [past events, as related history] Intelligence: [below averag] [based on history, based on vocabulary, syntax, grammar, and content] Judgement: [poor] [per patient's behavior/history of present illness] Insight: [ poor] [understanding severity of illness/history of present illness] Admitting Diagnosis: [bipolar affective disorder acute psychosis and PTSD Patient Strengths - Personal Skills: [] Achievements: [] Able to vocalize needs: [x] Patient Limitations: [medication, non-compliance, pathological/unsupported environment, no interests, intellectual impairment, complicated medical illness , legal issues, lack of social supports, other] Initial Plan of Care: [admission to psych unit, medical evaluation and medicine , social work, recreation therapy mora and milieu ] Increase his depakote 1,000 ER dose in am and again discussed with him that he needs to take his medications increased his Invega to 3 mg at bedtime Estimated Length of Stay: [5] Initial Discharge Plan: [home, [facility], referred to therapist Prognosis: [good] Justification for Inpatient Hospitalization - [Hallucinations, delusions, agitation, anxiety, depression resulting in significant loss of functioning.] [Dangerous to self, others, or property with need for controlled environment.] [Emotional or behavioral conditions and complications requiring 24 hour medical and nursing care.] [Need for special drug therapy, or other therapeutic program requiring continuous hospitalization.] [Failure of social or occupational functioning.] [Inability to meet basic life and health needs.] [Legally mandated admission.] [ (1) Schizoaffective disorder, bipolar type Current Visit: Yes Status: Acute Priority: High Code(s): F25.0 - SCHIZOAFFECTIVE DISORDER, BIPOLAR TYPE SNOMED Code(s): 52606027 (2) Suicidal behavior with attempted self-injury Current Visit: Yes Status: Acute Priority: High Code(s): T14.91XA - SUICIDE ATTEMPT, INITIAL ENCOUNTER SNOMED Code(s): 121868181 Plan: Discussed health care plan 12 mg and will convert into injectable will add clonidine 0.2 mg 3 times a day for anxiety and elevated heart rate and will add cogentin. EKG is ordered due to drug drug interactions. We'll stop Requip Time with Patient: Less than 30
[2018-03-28] MEDS: cloNIDine HCL 0.2 MG TAB PO SCH ×4 (10:30→20:56)
[2018-03-28] MEDS: NICOTINE 14MG/24HR PATCH TRANSDERM SCH (10:30)
[2018-03-28] MEDS: DIVALPROEX ER 500 MG TAB.ER.24H PO SCH (10:30)
[2018-03-28] MEDS: BENZTROPINE MESYLATE 0.5 MG TAB PO SCH ×2 (10:30→20:56)
[2018-03-28] MEDS ORDERED: PALIPERIDONE 6 MG TAB.ER.24 PO SCH (21:00)
[2018-03-29] MEDS: BENZTROPINE MESYLATE 0.5 MG TAB PO SCH ×2 (09:28→21:01)
[2018-03-29] MEDS: DIVALPROEX ER 500 MG TAB.ER.24H PO SCH (09:28)
[2018-03-29] MEDS: NICOTINE 14MG/24HR PATCH TRANSDERM SCH ×2 (09:28→09:33)
[2018-03-29] MEDS: cloNIDine HCL 0.2 MG TAB PO SCH (09:29)
--- NOTE | 2018-03-29 10:02 | P.PN ---
Subjective Progress Note Date: 03/29/18 Principal diagnosis: Schizoaffective He is taking his medications isolated to his room with a one-to-one and still has suicidal ideation depression rated as 7 out of 10 anxiety 7 out of 10 denies any auditory or visual hallucinations Objective - Vital Signs Vital signs: Vital Signs Temp 97.7 F 03/29/18 06:33 Pulse 81 03/29/18 06:33 Resp 16 03/29/18 06:33 BP 99/55 03/29/18 06:33 Pulse Ox 98 03/28/18 22:18 - Labs CBC & Chem 7: 03/20/18 10:23 03/20/18 10:23 Assessment and Plan Assessment: Mental Status Examination - General Appearance: [disheveled, casual, bizarre, appears stated age Speech/Language: [rapid, rambled, hesitant, monotone, expressive, soft Attitude/Behavior: [ guarded, irritable, withdrawn, indifferent, other] Mood: [ depressed, euphoric, anxious, elated, irritable, angry, fearful, hopelessness] Affect: [ flat, incongruent, labile] Orientation: [not time, person, not place situation] Thought Content: [delusions] Risk Factors: [suicidal (ideations, plan) Perception: [ hallucinations Thought Processes: [ concrete] Concentration/Attention Span: [, impaired] [Per observation and interview with the patient] Recent Memory: [impaired] [0out of 3 in 3 minutes] Remote Memory: [ impaired] [past events, as related history] Intelligence: [below averag] [based on history, based on vocabulary, syntax, grammar, and content] Judgement: [poor] [per patient's behavior/history of present illness] Insight: [ poor] [understanding severity of illness/history of present illness] Admitting Diagnosis: [bipolar affective disorder acute psychosis and PTSD Patient Strengths - Personal Skills: [] Achievements: [] Able to vocalize needs: [x] Patient Limitations: [medication, non-compliance, pathological/unsupported environment, no interests, intellectual impairment, complicated medical illness , legal issues, lack of social supports, other] Initial Plan of Care: [admission to psych unit, medical evaluation and medicine , social work, recreation therapy mora and milieu ] Increase his depakote 1,000 ER dose in am and again discussed with him that he needs to take his medications increased his Invega to 3 mg at bedtime Estimated Length of Stay: [5] Initial Discharge Plan: [home, [facility], referred to therapist Prognosis: [good] Justification for Inpatient Hospitalization - [Hallucinations, delusions, agitation, anxiety, depression resulting in significant loss of functioning.] [Dangerous to self, others, or property with need for controlled environment.] [Emotional or behavioral conditions and complications requiring 24 hour medical and nursing care.] [Need for special drug therapy, or other therapeutic program requiring continuous hospitalization.] [Failure of social or occupational functioning.] [Inability to meet basic life and health needs.] [Legally mandated admission.] [ (1) Schizoaffective disorder, bipolar type Current Visit: Yes Status: Acute Priority: Medium Code(s): F25.0 - SCHIZOAFFECTIVE DISORDER, BIPOLAR TYPE SNOMED Code(s): 33902921 (2) Suicidal behavior with attempted self-injury Current Visit: Yes Status: Acute Priority: High Code(s): T14.91XA - SUICIDE ATTEMPT, INITIAL ENCOUNTER SNOMED Code(s): 640800566 Plan: Discussed health care plan 12 mg and will convert into injectable will add clonidine 0.1 mg 3 times a day for anxiety and elevated heart rate and will add cogentin. EKG is ordered due to drug drug interactions. We'll stop Requip Increase Invega 9 mg po qhs Time with Patient: Less than 30
[2018-03-29 10:08] LABS: HCT 40.4 % (39.0-53.0); HGB 13.1 gm/dL (13.0-17.5); MCH 32.4 pg (25.0-35.0); MCHC 32.4 g/dL (31.0-37.0); MCV 100.1 fL (80.0-100.0); Mean Platelet Volume 7.9; Platelet Count 196 k/uL (150-450); RBC 4.04 m/uL (4.30-5.90); RDW 13.1 % (11.5-15.5)
[2018-03-29 11:04] LABS: Anion Gap 9 mmol/L; Blood Urea Nitrogen 18 mg/dL (9-20); Calcium 9.1 mg/dL (8.4-10.2); Carbon Dioxide 23 mmol/L (22-30); Chloride 108 mmol/L (98-107); Glucose 85 mg/dL (74-99); Potassium 4.7 mmol/L (3.5-5.1); Sodium 140 mmol/L (137-145)
[2018-03-29] MEDS: cloNIDine HCL 0.1 MG TAB PO SCH ×2 (16:27→21:02)
[2018-03-29] MEDS: hydrOXYzine PAMOATE 25 MG CAP PO PRN (16:30)
[2018-03-29] MEDS ORDERED: PALIPERIDONE 3 MG TAB.ER.24 PO SCH (21:00)
[2018-03-30] MEDS ORDERED: cloNIDine HCL 0.1 MG TAB PO STA (00:11)
[2018-03-30] MEDS ORDERED: BENZTROPINE MESYLATE 0.5 MG TAB PO STA (00:12)
[2018-03-30] MEDS ORDERED: PALIPERIDONE 3 MG TAB.ER.24 PO STA (00:14)
[2018-03-30] MEDS: DIVALPROEX ER 500 MG TAB.ER.24H PO SCH (08:18)
[2018-03-30] MEDS: NICOTINE 14MG/24HR PATCH TRANSDERM SCH (08:19)
[2018-03-30] MEDS: BENZTROPINE MESYLATE 0.5 MG TAB PO SCH ×2 (08:19→21:10)
[2018-03-30] MEDS: cloNIDine HCL 0.1 MG TAB PO SCH ×4 (08:19→21:10)
--- NOTE | 2018-03-30 10:17 | P.PN ---
Subjective Progress Note Date: 03/30/18 Principal diagnosis: Schizoaffective He is taking his medications isolated to his room with a one-to-one and still has suicidal ideation depression rated as 7 out of 10 anxiety 7 out of 10 denies any auditory or visual hallucinations Objective - Vital Signs Vital signs: Vital Signs Temp 97.7 F 03/29/18 06:33 Pulse 81 03/29/18 06:33 Resp 16 03/29/18 06:33 BP 99/55 03/29/18 06:33 Pulse Ox 98 03/28/18 22:18 - Labs CBC & Chem 7: 03/29/18 09:55 03/29/18 09:55 Labs: Abnormal Lab Results - Last 24 Hours (Table) 03/29/18 Range/Units 09:55 Chloride 108 H (98-107) mmol/L Assessment and Plan Assessment: Mental Status Examination - General Appearance: [disheveled, casual, bizarre, appears stated age Speech/Language: [rapid, rambled, hesitant, monotone, expressive, soft Attitude/Behavior: [ guarded, irritable, withdrawn, indifferent, other] Mood: [ depressed, euphoric, anxious, elated, irritable, angry, fearful, hopelessness] Affect: [ flat, incongruent, labile] Orientation: [not time, person, not place situation] Thought Content: [delusions] Risk Factors: [suicidal (ideations, plan) Perception: [ hallucinations Thought Processes: [ concrete] Concentration/Attention Span: [, impaired] [Per observation and interview with the patient] Recent Memory: [impaired] [0out of 3 in 3 minutes] Remote Memory: [ impaired] [past events, as related history] Intelligence: [below averag] [based on history, based on vocabulary, syntax, grammar, and content] Judgement: [poor] [per patient's behavior/history of present illness] Insight: [ poor] [understanding severity of illness/history of present illness] Admitting Diagnosis: [bipolar affective disorder acute psychosis and PTSD Patient Strengths - Able to vocalize needs: [x] Patient Limitations: [medication, non-compliance, pathological/unsupported environment, no interests, intellectual impairment, complicated medical illness , legal issues, lack of social supports, other] Initial Plan of Care: [admission to psych unit, medical evaluation and medicine , social work, recreation therapy mora and milieu ] Increase his depakote 1,000 ER dose in am and again discussed with him that he needs to take his medications increased his Invega to 12 mg at bedtime Estimated Length of Stay: [5] Initial Discharge Plan: [home, [facility], referred to therapist Prognosis: [good] Justification for Inpatient Hospitalization - [Hallucinations, delusions, agitation, anxiety, depression resulting in significant loss of functioning.] [Dangerous to self, others, or property with need for controlled environment.] [Emotional or behavioral conditions and complications requiring 24 hour medical and nursing care.] [Need for special drug therapy, or other therapeutic program requiring continuous hospitalization.] [Failure of social or occupational functioning.] [Inability to meet basic life and health needs.] [Legally mandated admission.] [ (1) Schizoaffective disorder, bipolar type Current Visit: Yes Status: Acute Priority: Medium Code(s): F25.0 - SCHIZOAFFECTIVE DISORDER, BIPOLAR TYPE SNOMED Code(s): 48150188 (2) Suicidal behavior with attempted self-injury Current Visit: Yes Status: Acute Priority: High Code(s): T14.91XA - SUICIDE ATTEMPT, INITIAL ENCOUNTER SNOMED Code(s): 546069161 Plan: Discussed health care plan 12 mg and will convert into injectable will add clonidine 0.1 mg 3 times a day for anxiety and elevated heart rate and will add cogentin. EKG is ordered due to drug drug interactions. We'll stop Requip Increase Invega 12 mg po qhs Time with Patient: Less than 30
[2018-03-30] MEDS: PALIPERIDONE 6 MG TAB.ER.24 PO SCH (21:10)
[2018-03-30] MEDS: hydrOXYzine PAMOATE 25 MG CAP PO PRN (22:23)
[2018-03-31] MEDS: NICOTINE 14MG/24HR PATCH TRANSDERM SCH (08:30)
[2018-03-31] MEDS: BENZTROPINE MESYLATE 0.5 MG TAB PO SCH ×2 (08:30→21:24)
[2018-03-31] MEDS: DIVALPROEX ER 500 MG TAB.ER.24H PO SCH (08:30)
[2018-03-31] MEDS: cloNIDine HCL 0.1 MG TAB PO SCH ×3 (08:31→21:24)
--- NOTE | 2018-03-31 12:01 | P.PN ---
Progress Note - Text Interval history: The patient is found in his room he follows me to an interview room. He reports feeling fairly frustrated he feels that he's not able to have many things that he would like. He would like more changes of close. He feels he is overly restricted here. He states that he is trying to get into a long-term treatment facility but in the meantime would go to [facility] if possible. He has no questions regarding his psychotropic medications we did review them. He has not been attending groups this morning. Mental status exam: The patient is alert he is a thin male appearing his stated age. He is dressed in his own clothing. He has a large tattoo on his anterior neck another one visible on the posterior aspect of his right hand. Eye contact is poor. He does have spontaneous speech. He indicates feeling anxious. He is reporting no acute suicidal or homicidal ideation but states his mood is "not too good". He is endorsing no current auditory or visual hallucinations is no observed evidence of psychosis during our brief interaction. Thought process is linear circumstantial at times he demonstrates no tangential thinking loose associations or flight of ideas. He does not appear hypomanic or manic during our interaction. Plan: The patient will continue on his current psychotropic medication. He is encouraged to participate in the milieu. Vital signs reviewed.
[2018-03-31] MEDS: NICOTINE 21MG/24HR PATCH TRANSDERM SCH (15:50)
[2018-03-31] MEDS: PALIPERIDONE 6 MG TAB.ER.24 PO SCH (21:24)
[2018-03-31] MEDS: hydrOXYzine PAMOATE 25 MG CAP PO PRN (21:25)
[2018-03-31] MEDS: MAG HYDROX/AL HYDROX/SIMETH 30 ML CUP PO PRN (23:08)
[2018-04-01] MEDS: DIVALPROEX ER 500 MG TAB.ER.24H PO SCH (09:23)
[2018-04-01] MEDS: BENZTROPINE MESYLATE 0.5 MG TAB PO SCH ×2 (09:23→20:48)
[2018-04-01] MEDS: cloNIDine HCL 0.1 MG TAB PO SCH ×3 (09:23→20:53)
[2018-04-01] MEDS: NICOTINE 21MG/24HR PATCH TRANSDERM SCH ×3 (09:24→16:26)
--- NOTE | 2018-04-01 11:42 | P.PN ---
Progress Note - Text Interval history: The patient is found in his room he follows me to an interview room. He indicates still feeling stressed but is mildly better than yesterday. It's documented that he slept 6 hours. He states today he did eat better than yesterday. He was pleasantly surprised that a former patient appear visited him yesterday. He continues to state that he would like to get placed in a long-term chemical dependency treatment center. He has no questions or concerns regarding his psychotropic medications at this time. We discussed that his Depakote level came back in the subtherapeutic range he is amenable to having me titrated in moving the dosing to bedtime. He feels that the Depakote during the day does make him tired in the morning. Mental status exam: The patient is a thin male appearing his stated age he is dressed in his own clothing. He has a large tattoo on his anterior neck and others on his extremities. Eye contact is intermittent he does appear less anxious than yesterday affect is constricted. He is reporting no acute suicidal or homicidal ideation intent or plan. He endorses no auditory or visual hallucinations or any specific delusions. He is not appear hypomanic manic or psychotic at this time. Insight and judgment improving. He demonstrates no abnormal repetitive movements. He is oriented to person place and date. He is demonstrating future oriented thinking. Plan: The patient will continue on his current medication however we will titrate the Depakote ER to 1500 mg at bedtime. He will get a 500 mg dose this evening and then starting tomorrow evening and will change to 1500 mg total. He is encouraged to participate in the milieu we will monitor him for safety has vital signs reviewed.
[2018-04-01] MEDS: ACETAMINOPHEN TAB 325 MG TAB PO PRN (15:21)
[2018-04-01] MEDS: hydrOXYzine PAMOATE 25 MG CAP PO PRN ×2 (16:26→16:43)
[2018-04-01] MEDS ORDERED: hydrOXYzine PAMOATE 25 MG CAP PO STA (16:33)
[2018-04-01] MEDS: PALIPERIDONE 6 MG TAB.ER.24 PO SCH (20:49)
[2018-04-01] MEDS ORDERED: DIVALPROEX ER 500 MG TAB.ER.24H PO ONE (21:00)
[2018-04-01] MEDS: MAG HYDROX/AL HYDROX/SIMETH 30 ML CUP PO PRN (22:09)
[2018-04-02] MEDS: hydrOXYzine PAMOATE 25 MG CAP PO PRN ×2 (00:12→22:07)
[2018-04-02] MEDS: cloNIDine HCL 0.1 MG TAB PO SCH ×3 (09:43→20:59)
[2018-04-02] MEDS: BENZTROPINE MESYLATE 0.5 MG TAB PO SCH (09:43)
[2018-04-02] MEDS: NICOTINE 21MG/24HR PATCH TRANSDERM SCH (09:43)
--- NOTE | 2018-04-02 12:37 | P.PN ---
Subjective Progress Note Date: 04/02/18 Principal diagnosis: Schizoaffective He is taking his medications still has suicidal ideation depression rated as 6 out of 10 anxiety 5 out of 10 denies any auditory or visual hallucinations Objective - Vital Signs Vital signs: Vital Signs Temp 97.7 F 04/02/18 00:53 Pulse 95 04/02/18 00:53 Resp 16 04/02/18 00:53 BP 111/67 04/02/18 00:53 Pulse Ox 98 03/28/18 22:18 Intake & Output 04/01/18 04/02/18 04/02/18 18:59 06:59 18:59 Weight 78.041 kg - Labs CBC & Chem 7: 03/29/18 09:55 03/29/18 09:55 Assessment and Plan Assessment: Mental Status Examination - General Appearance: [disheveled, casual, bizarre, appears stated age Speech/Language: [rapid, rambled, hesitant, monotone, expressive, soft Attitude/Behavior: [ guarded, irritable, withdrawn, indifferent, other] Mood: [ depressed, euphoric, anxious, elated, irritable, angry, fearful, hopelessness] Affect: [ flat, incongruent, labile] Orientation: [not time, person, not place situation] Thought Content: [delusions] Risk Factors: [suicidal (ideations, plan) Perception: [ hallucinations Thought Processes: [ concrete] Concentration/Attention Span: [, impaired] [Per observation and interview with the patient] Recent Memory: [impaired] [0out of 3 in 3 minutes] Remote Memory: [ impaired] [past events, as related history] Intelligence: [below averag] [based on history, based on vocabulary, syntax, grammar, and content] Judgement: [poor] [per patient's behavior/history of present illness] Insight: [ poor] [understanding severity of illness/history of present illness] Admitting Diagnosis: [bipolar affective disorder acute psychosis and PTSD Patient Strengths - Able to vocalize needs: [x] Patient Limitations: [medication, non-compliance, pathological/unsupported environment, no interests, intellectual impairment, complicated medical illness , legal issues, lack of social supports, other] Initial Plan of Care: [admission to psych unit, medical evaluation and medicine , social work, recreation therapy mora and milieu ] Increase his depakote 2,000 ER dose in am and again discussed with him that he needs to take his medications increased his Invega to 12 mg at bedtime also added Wellbutrin 150 mg Sr for anxiety and depression. Estimated Length of Stay: [1] Initial Discharge Plan: [home, [facility], referred to therapist Prognosis: [good] Justification for Inpatient Hospitalization - [Hallucinations, delusions, agitation, anxiety, depression resulting in significant loss of functioning.] [Dangerous to self, others, or property with need for controlled environment.] [Emotional or behavioral conditions and complications requiring 24 hour medical and nursing care.] [Need for special drug therapy, or other therapeutic program requiring continuous hospitalization.] [Failure of social or occupational functioning.] [Inability to meet basic life and health needs.] [Legally mandated admission.] [ (1) Schizoaffective disorder, bipolar type Current Visit: Yes Status: Acute Priority: Medium Code(s): F25.0 - SCHIZOAFFECTIVE DISORDER, BIPOLAR TYPE SNOMED Code(s): 73480570 (2) Suicidal behavior with attempted self-injury Current Visit: Yes Status: Acute Priority: Medium Code(s): T14.91XA - SUICIDE ATTEMPT, INITIAL ENCOUNTER SNOMED Code(s): 631295593 Plan: Discussed health care plan 12 mg and will convert into injectable will add clonidine 0.1 mg 3 times a day for anxiety and elevated heart rate and will add cogentin. EKG is ordered due to drug drug interactions. We'll stop Requip Increase Invega 12 mg po qhs added wellbutrin 150 mg SR po qam for anxiety and depression Time with Patient: Less than 30
[2018-04-02] MEDS: PALIPERIDONE 6 MG TAB.ER.24 PO SCH (20:59)
[2018-04-02] MEDS: NALTREXONE HCL 50 MG TAB PO SCH (20:59)
[2018-04-02] MEDS: BENZTROPINE MESYLATE 1 MG TAB PO SCH (20:59)
[2018-04-02] MEDS ORDERED: DIVALPROEX ER 500 MG TAB.ER.24H PO SCH (21:00)
[2018-04-02] MEDS: MAG HYDROX/AL HYDROX/SIMETH 30 ML CUP PO PRN (21:18)
[2018-04-03] MEDS ORDERED: DIVALPROEX ER 500 MG TAB.ER.24H PO SCH (09:00)
--- NOTE | 2018-04-03 10:25 | P.PN ---
Subjective Progress Note Date: 04/03/18 Principal diagnosis: Schizoaffective He is taking his medications still has suicidal ideation depression rated as 6 out of 10 anxiety 5 out of 10 denies any auditory or visual hallucinations Objective - Vital Signs Vital signs: Vital Signs Temp 97.9 F 04/03/18 06:30 Pulse 80 04/03/18 06:30 Resp 18 04/03/18 06:30 BP 115/54 04/03/18 06:30 Pulse Ox 98 03/28/18 22:18 - Labs CBC & Chem 7: 03/29/18 09:55 03/29/18 09:55 Assessment and Plan Assessment: Mental Status Examination - General Appearance: [casual, appears stated age Speech/Language: [rapid, rambled, hesitant, monotone, expressive, soft Attitude/Behavior: [ guarded, irritable, withdrawn, indifferent, other] Mood: [ depressed, euphoric, anxious, elated, irritable, angry, fearful, hopelessness] Affect: [ flat, incongruent, labile] Orientation: [time, person, not place situation] Thought Content: [delusions] Risk Factors: [suicidal (ideations, plan) Perception: [ hallucinations Thought Processes: [ concrete] Concentration/Attention Span: [, impaired] [Per observation and interview with the patient] Recent Memory: [impaired] [2 out of 3 in 3 minutes] Remote Memory: [ wnl] [past events, as related history] Intelligence: [below averag] [based on history, based on vocabulary, syntax, grammar, and content] Judgement: [fair] [per patient's behavior/history of present illness] Insight: [ fair] [understanding severity of illness/history of present illness] Admitting Diagnosis: [bipolar affective disorder acute psychosis and PTSD Patient Strengths - Able to vocalize needs: [x] Patient Limitations: [medication, non-compliance, pathological/unsupported environment, no interests, intellectual impairment, complicated medical illness , legal issues, lack of social supports, other] Initial Plan of Care: [admission to psych unit, medical evaluation and medicine , social work, recreation therapy mora and milieu ] Increase his depakote 2,000 ER dose in am and again discussed with him that he needs to take his medications increased his Invega to 12 mg at bedtime also added Wellbutrin 150 mg Sr for anxiety and depression. Estimated Length of Stay: [1] Initial Discharge Plan: [home, [facility], referred to therapist Prognosis: [good] Justification for Inpatient Hospitalization - [Hallucinations, delusions, agitation, anxiety, depression resulting in significant loss of functioning.] [Dangerous to self, others, or property with need for controlled environment.] [Emotional or behavioral conditions and complications requiring 24 hour medical and nursing care.] [Need for special drug therapy, or other therapeutic program requiring continuous hospitalization.] [Failure of social or occupational functioning.] [Inability to meet basic life and health needs.] [Legally mandated admission.] [ (1) Schizoaffective disorder, bipolar type Current Visit: Yes Status: Acute Priority: Medium Code(s): F25.0 - SCHIZOAFFECTIVE DISORDER, BIPOLAR TYPE SNOMED Code(s): 69564094 (2) Suicidal behavior with attempted self-injury Current Visit: Yes Status: Acute Priority: Medium Code(s): T14.91XA - SUICIDE ATTEMPT, INITIAL ENCOUNTER SNOMED Code(s): 237510845
[2018-04-03] MEDS: NICOTINE 21MG/24HR PATCH TRANSDERM SCH (10:26)
[2018-04-03] MEDS: PANTOPRAZOLE 40 MG TABLET PO SCH (10:26)
[2018-04-03] MEDS: cloNIDine HCL 0.1 MG TAB PO SCH ×3 (10:27→20:56)
[2018-04-03] MEDS: buPROPion SR 150 MG TABLET.ER PO SCH (10:27)
[2018-04-03] MEDS: DIVALPROEX ER 500 MG TAB.ER.24H PO SCH (10:27)
[2018-04-03] MEDS: BENZTROPINE MESYLATE 1 MG TAB PO SCH ×2 (10:27→20:55)
[2018-04-03] MEDS: hydrOXYzine PAMOATE 25 MG CAP PO PRN (13:47)
[2018-04-03 15:22] VITALS: BMI 24.7
[2018-04-03] MEDS: NALTREXONE HCL 50 MG TAB PO SCH (20:55)
[2018-04-03] MEDS: PALIPERIDONE 6 MG TAB.ER.24 PO SCH (20:56)
[2018-04-04] MEDS: NICOTINE 21MG/24HR PATCH TRANSDERM SCH ×2 (07:43→18:01)
[2018-04-04] MEDS: buPROPion SR 150 MG TABLET.ER PO SCH (07:44)
[2018-04-04] MEDS: BENZTROPINE MESYLATE 1 MG TAB PO SCH ×2 (07:44→20:59)
[2018-04-04] MEDS: DIVALPROEX ER 500 MG TAB.ER.24H PO SCH (07:44)
[2018-04-04] MEDS: cloNIDine HCL 0.1 MG TAB PO SCH ×3 (07:44→20:59)
[2018-04-04] MEDS: PANTOPRAZOLE 40 MG TABLET PO SCH (07:44)
--- NOTE | 2018-04-04 11:43 | P.PN ---
Subjective Progress Note Date: 04/04/18 Principal diagnosis: Schizoaffective He is taking his medications still has suicidal ideation depression rated as 5 out of 10 anxiety 5 out of 10 denies any auditory or visual hallucinations Objective - Vital Signs Vital signs: Vital Signs Temp 97.9 F 04/03/18 06:30 Pulse 85 04/04/18 07:55 Resp 18 04/04/18 07:55 BP 118/59 04/04/18 07:55 Pulse Ox 96 04/03/18 10:45 Intake & Output 04/03/18 04/04/18 04/04/18 18:59 06:59 18:59 Weight 78.041 kg - Labs CBC & Chem 7: 03/29/18 09:55 03/29/18 09:55 Assessment and Plan Assessment: Mental Status Examination - General Appearance: [casual, appears stated age Speech/Language: [rapid, rambled, hesitant, monotone, expressive, soft Attitude/Behavior: [ guarded, irritable, withdrawn, indifferent, other] Mood: [ depressed, euphoric, anxious, elated, irritable, angry, fearful, hopelessness] Affect: [ flat, incongruent, labile] Orientation: [time, person, not place situation] Thought Content: [delusions] Risk Factors: [suicidal (ideations, plan) Perception: [ hallucinations Thought Processes: [ concrete] Concentration/Attention Span: [, impaired] [Per observation and interview with the patient] Recent Memory: [impaired] [2 out of 3 in 3 minutes] Remote Memory: [ wnl] [past events, as related history] Intelligence: [below averag] [based on history, based on vocabulary, syntax, grammar, and content] Judgement: [fair] [per patient's behavior/history of present illness] Insight: [ fair] [understanding severity of illness/history of present illness] Admitting Diagnosis: [bipolar affective disorder acute psychosis and PTSD Patient Strengths - Able to vocalize needs: [x] Patient Limitations: [medication, non-compliance, pathological/unsupported environment, no interests, intellectual impairment, complicated medical illness , legal issues, lack of social supports, other] Initial Plan of Care: [admission to psych unit, medical evaluation and medicine , social work, recreation therapy mora and milieu ] Increase his depakote 2,000 ER dose in am and again discussed with him that he needs to take his medications increased his Invega to 12 mg at bedtime also added Wellbutrin 200 mg Sr for anxiety and depression. Estimated Length of Stay: [1] Initial Discharge Plan: [home, [facility], [facility] Prognosis: [good] Justification for Inpatient Hospitalization - [Hallucinations, delusions, agitation, anxiety, depression resulting in significant loss of functioning.] [Dangerous to self, others, or property with need for controlled environment.] [Emotional or behavioral conditions and complications requiring 24 hour medical and nursing care.] [Need for special drug therapy, or other therapeutic program requiring continuous hospitalization.] [Failure of social or occupational functioning.] [Inability to meet basic life and health needs.] [Legally mandated admission.] [ (1) Schizoaffective disorder, bipolar type Current Visit: Yes Status: Acute Priority: Medium Code(s): F25.0 - SCHIZOAFFECTIVE DISORDER, BIPOLAR TYPE SNOMED Code(s): 28644769 (2) Suicidal behavior with attempted self-injury Current Visit: Yes Status: Acute Priority: Medium Code(s): T14.91XA - SUICIDE ATTEMPT, INITIAL ENCOUNTER SNOMED Code(s): 611371119 Plan: Discussed health care plan 12 mg and will convert into injectable will add clonidine 0.1 mg 3 times a day for anxiety and elevated heart rate and will add cogentin. EKG is ordered due to drug drug interactions. We'll stop Requip Increase Invega 12 mg po qhs added wellbutrin 200 mg SR po qam for anxiety and depression Time with Patient: Less than 30
[2018-04-04] MEDS ORDERED: hydrOXYzine PAMOATE 25 MG CAP PO STA (19:50)
[2018-04-04] MEDS: NALTREXONE HCL 50 MG TAB PO SCH (20:59)
[2018-04-04] MEDS: PALIPERIDONE 6 MG TAB.ER.24 PO SCH (20:59)
[2018-04-05] MEDS: NICOTINE 21MG/24HR PATCH TRANSDERM SCH (09:06)
[2018-04-05] MEDS: cloNIDine HCL 0.1 MG TAB PO SCH ×3 (09:06→20:17)
[2018-04-05] MEDS: BENZTROPINE MESYLATE 1 MG TAB PO SCH ×2 (09:06→20:16)
[2018-04-05] MEDS: DIVALPROEX ER 500 MG TAB.ER.24H PO SCH (09:06)
[2018-04-05] MEDS: PANTOPRAZOLE 40 MG TABLET PO SCH ×2 (09:07→20:16)
[2018-04-05] MEDS: buPROPion SR 100 MG TABLET.ER PO SCH (09:07)
--- NOTE | 2018-04-05 09:22 | P.PN ---
Subjective Progress Note Date: 04/05/18 Principal diagnosis: Schizoaffective He is taking his medications still has suicidal ideation depression rated as 5 out of 10 anxiety 5 out of 10 denies any auditory or visual hallucinations Objective - Vital Signs Vital signs: Vital Signs Temp 97.9 F 04/03/18 06:30 Pulse 118 H 04/05/18 09:09 Resp 18 04/05/18 09:09 BP 125/62 04/05/18 09:09 Pulse Ox 96 04/03/18 10:45 - Labs CBC & Chem 7: 03/29/18 09:55 03/29/18 09:55 Assessment and Plan Assessment: Mental Status Examination - General Appearance: [casual, appears stated age Speech/Language: [rapid, rambled, hesitant, monotone, expressive, soft Attitude/Behavior: [ guarded, irritable, withdrawn, indifferent, other] Mood: [ depressed, euphoric, anxious, elated, irritable, angry, fearful, hopelessness] Affect: [ flat, incongruent, labile] Orientation: [time, person, not place situation] Thought Content: [delusions] Risk Factors: [suicidal (ideations, plan) Perception: [ hallucinations Thought Processes: [ concrete] Concentration/Attention Span: [wnl] [Per observation and interview with the patient] Recent Memory: [wnl] [3 out of 3 in 3 minutes] Remote Memory: [ wnl] [past events, as related history] Intelligence: [below averag] [based on history, based on vocabulary, syntax, grammar, and content] Judgement: [fair] [per patient's behavior/history of present illness] Insight: [ fair] [understanding severity of illness/history of present illness] Admitting Diagnosis: [bipolar affective disorder acute psychosis and PTSD Patient Strengths - Able to vocalize needs: [x] Patient Limitations: [medication, non-compliance, pathological/unsupported environment, no interests, intellectual impairment, complicated medical illness , legal issues, lack of social supports, other] Initial Plan of Care: [admission to psych unit, medical evaluation and medicine , social work, recreation therapy [facility] ] Increase his depakote 2,000 ER dose in am and again discussed with him that he needs to take his medications increased his Invega to 12 mg at bedtime also added Wellbutrin 200 mg Sr for anxiety and depression.Increase vistaril to 50 mg po prn 8 hours Estimated Length of Stay: [1] Initial Discharge Plan: [home, [facility], referred to therapist and [facility] substance abuse treatment Prognosis: [good] Justification for Inpatient Hospitalization - [Hallucinations, delusions, agitation, anxiety, depression resulting in significant loss of functioning.] [Dangerous to self, others, or property with need for controlled environment.] [Emotional or behavioral conditions and complications requiring 24 hour medical and nursing care.] [Need for special drug therapy, or other therapeutic program requiring continuous hospitalization.] [Failure of social or occupational functioning.] [Inability to meet basic life and health needs.] [Legally mandated admission.] [ (1) Schizoaffective disorder, bipolar type Current Visit: Yes Status: Acute Priority: Medium Code(s): F25.0 - SCHIZOAFFECTIVE DISORDER, BIPOLAR TYPE SNOMED Code(s): 49754237 (2) Suicidal behavior with attempted self-injury Current Visit: Yes Status: Acute Priority: Medium Code(s): T14.91XA - SUICIDE ATTEMPT, INITIAL ENCOUNTER SNOMED Code(s): 978581941
[2018-04-05] MEDS: hydrOXYzine PAMOATE 25 MG CAP PO PRN (16:49)
[2018-04-05] MEDS: NALTREXONE HCL 50 MG TAB PO SCH (20:16)
[2018-04-05] MEDS: PALIPERIDONE 6 MG TAB.ER.24 PO SCH (20:17)
[2018-04-06] MEDS ORDERED: diphenhydrAMINE 50 MG CAP PO STA (00:06)
[2018-04-06] MEDS: buPROPion SR 100 MG TABLET.ER PO SCH (09:24)
[2018-04-06] MEDS: cloNIDine HCL 0.1 MG TAB PO SCH ×3 (09:24→20:29)
[2018-04-06] MEDS: NICOTINE 21MG/24HR PATCH TRANSDERM SCH (09:24)
[2018-04-06] MEDS: BENZTROPINE MESYLATE 1 MG TAB PO SCH ×2 (09:24→20:28)
[2018-04-06] MEDS: DIVALPROEX ER 500 MG TAB.ER.24H PO SCH (09:25)
--- NOTE | 2018-04-06 11:54 | P.PN ---
Subjective Progress Note Date: 04/06/18 Principal diagnosis: Schizoaffective He is taking his medications still has suicidal ideation depression rated as 5 out of 10 anxiety 5 out of 10 denies any auditory or visual hallucinations Objective - Vital Signs Vital signs: Vital Signs Temp 97.7 F 04/06/18 09:31 Pulse 100 04/06/18 09:31 Resp 18 04/06/18 09:31 BP 128/68 04/06/18 09:31 Pulse Ox 96 04/03/18 10:45 - Labs CBC & Chem 7: 03/29/18 09:55 03/29/18 09:55 Assessment and Plan Assessment: Mental Status Examination - General Appearance: [casual, appears stated age Speech/Language: [rapid, rambled, hesitant, monotone, expressive, soft Attitude/Behavior: [ guarded, irritable, withdrawn, indifferent, other] Mood: [ depressed, euphoric, anxious, elated, irritable, angry, fearful, hopelessness] Affect: [ flat, incongruent, labile] Orientation: [time, person, not place situation] Thought Content: [delusions] Risk Factors: [suicidal (ideations, plan) Perception: [ hallucinations Thought Processes: [ concrete] Concentration/Attention Span: [wnl] [Per observation and interview with the patient] Recent Memory: [wnl] [3 out of 3 in 3 minutes] Remote Memory: [ wnl] [past events, as related history] Intelligence: [below averag] [based on history, based on vocabulary, syntax, grammar, and content] Judgement: [fair] [per patient's behavior/history of present illness] Insight: [ fair] [understanding severity of illness/history of present illness] Admitting Diagnosis: [bipolar affective disorder acute psychosis and PTSD Patient Strengths - patient wants to survive Able to vocalize needs: [x] Patient Limitations: [medication, non-compliance, pathological/unsupported environment, no interests, intellectual impairment, complicated medical illness , legal issues, lack of social supports, other] Initial Plan of Care: [admission to psych unit, medical evaluation and medicine , social work, recreation therapy [facility]a and milieu ] Increase his depakote 2,000 ER dose in am and again discussed with him that he needs to take his medications increased his Invega to 12 mg at bedtime also added Wellbutrin 200 mg Sr for anxiety and depression.Increase vistaril to 50 mg po prn 8 hours: Added Benadryl 100 mg for sleep last night Estimated Length of Stay: [Unknown] Initial Discharge Plan: [home, [facility], 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 Prognosis: [good] Justification for Inpatient Hospitalization - [Hallucinations, delusions, agitation, anxiety, depression resulting in significant loss of functioning.] [Dangerous to self, others, or property with need for controlled environment.] [Emotional or behavioral conditions and complications requiring 24 hour medical and nursing care.] [Need for special drug therapy, or other therapeutic program requiring continuous hospitalization.] [Failure of social or occupational functioning.] [Inability to meet basic life and health needs.] [Legally mandated admission.] [ (1) Schizoaffective disorder, bipolar type Current Visit: Yes Status: Acute Priority: Medium Code(s): F25.0 - SCHIZOAFFECTIVE DISORDER, BIPOLAR TYPE SNOMED Code(s): 79747359 (2) Suicidal behavior with attempted self-injury Current Visit: Yes Status: Acute Priority: High Code(s): T14.91XA - SUICIDE ATTEMPT, INITIAL ENCOUNTER SNOMED Code(s): 888237652 Plan: Discussed health care plan 12 mg and will convert into injectable will add clonidine 0.1 mg 3 times a day for anxiety and elevated heart rate and will add cogentin. EKG is ordered due to drug drug interactions. We'll stop Requip Increase Invega 12 mg po qhs added wellbutrin 200 mg SR po qam for anxiety and depression in applying to [facility] for long-term residential substance abuse treatment but because he had mental health problems and substance abuse there are not able to take him. Discussed about whether she could go home and social work called his house and the father is insistent that he cannot come back. At then now becomes an issue of placement after discharge. After finding out he could not go to [facility] he became sad with suicidal ideation again. Time with Patient: Less than 30
[2018-04-06] MEDS: hydrOXYzine PAMOATE 25 MG CAP PO PRN (14:28)
[2018-04-06] MEDS: PALIPERIDONE 6 MG TAB.ER.24 PO SCH (20:28)
[2018-04-06] MEDS: NALTREXONE HCL 50 MG TAB PO SCH (20:28)
[2018-04-07] MEDS: NICOTINE 21MG/24HR PATCH TRANSDERM SCH ×2 (09:12→09:19)
[2018-04-07] MEDS: DIVALPROEX ER 500 MG TAB.ER.24H PO SCH (09:12)
[2018-04-07] MEDS: PANTOPRAZOLE 40 MG TABLET PO SCH ×2 (09:12→09:20)
[2018-04-07] MEDS: BENZTROPINE MESYLATE 1 MG TAB PO SCH ×2 (09:12→20:55)
[2018-04-07] MEDS: cloNIDine HCL 0.1 MG TAB PO SCH ×3 (09:12→20:57)
[2018-04-07] MEDS: buPROPion SR 100 MG TABLET.ER PO SCH ×2 (09:15→09:20)
--- NOTE | 2018-04-07 19:52 | P.PN ---
Progress Note - Text Progress Note Date: 04/07/18 IDENTIFICATION DATA: This is a 32-year-old male admitted due to suicidal ideations, auditory hallucinations and medication non compliance. Per records history of polysubstance (WEED, AMPHETAMINES) use multiple psychiatric hospitalizations since June 2017. INTERVAL HISTORY: Patient reports he is doing better as he is not exploding with anger anymore. He however says feeling depressed and suicidal. He reports poor appetite and sleep. He says he doesnt like going to recreational groups as he doesnt like playing games. He likes reading books he says. He reports feeling sad during the visiting hours as he sees other patients being visited by their families. He says his family lives in [place] and it is difficult for them to visit him. MENTAL STATUS EXAMINATION: The patient appears his stated age in fair grooming and hygiene. No abnormal movements noted. His speech and thought process are tangential. His mood is reported as anxious and affect constricted. He reports ongoing auditory hallucinations. Denies visual hallucinations. He reports paranoid ideations. He has passive suicidal ideations. He is alert and oriented x 4. ASSESSMENT AND PLAN: Continue current medications Continue safety precautions Encourage participation in groups Monitor for progress.
[2018-04-07] MEDS: PALIPERIDONE 6 MG TAB.ER.24 PO SCH (20:55)
[2018-04-07] MEDS: NALTREXONE HCL 50 MG TAB PO SCH (20:55)
[2018-04-07] MEDS: hydrOXYzine PAMOATE 25 MG CAP PO PRN (22:42)
[2018-04-08 00:43] VITALS: TEMP 98.2
[2018-04-08] MEDS ORDERED: diphenhydrAMINE 50 MG CAP PO STA (00:47)
[2018-04-08] MEDS: cloNIDine HCL 0.1 MG TAB PO SCH ×3 (09:30→20:50)
[2018-04-08] MEDS: BENZTROPINE MESYLATE 1 MG TAB PO SCH ×2 (09:30→20:50)
[2018-04-08] MEDS ORDERED: diphenhydrAMINE 50 MG CAP PO PRN (09:44)
[2018-04-08] MEDS: DIVALPROEX ER 500 MG TAB.ER.24H PO SCH (10:28)
[2018-04-08 16:50] LABS: Appearance,Urine Clear (Clear); Bilirubin,Urine Negative (Negative); Blood,Urine Negative (Negative); Color,Urine Light Yellow; Glucose,Urine (UA) Negative (Negative); Ketones,Urine Trace (Negative); Leukocyte Esterase,Urine Negative (Negative); Nitrite,Urine Negative (Negative); PH, Urine 6.5 (5.0-8.0); Protein,Urine Negative (Negative); Urobilinogen,Urine <2.0 mg/dL (<2.0)
--- NOTE | 2018-04-08 18:12 | P.PN ---
Progress Note - Text Progress Note Date: 04/08/18 IDENTIFICATION DATA: This is a 32-year-old male admitted due to suicidal ideations, auditory hallucinations and medication non compliance. Per records history of polysubstance (WEED, AMPHETAMINES) use multiple psychiatric hospitalizations since June 2017. INTERVAL HISTORY: He says his goal is to find himself a place which will teach him life skills and medication management atleast for six months. He reports feeling nervous about finding a place for himself. He reports feeling sleepy and tired due to taking Benadryl yesterday night to help him with his anxiety and sleep. He continues to reports feeling depressed and states he feels like as if he is in a deep hole. He also reports having suicidal thoughts with no intention to act on them. He reports being complaint with his medications. No side effects reported. He claims he took higher doses of wellbutrin in the past which he says has helped him. MENTAL STATUS EXAMINATION: The patient appears his stated age in fair grooming and hygiene. No abnormal movements noted. His speech and thought process are linear and goal directed. His mood is reported as nervous and affect constricted. He denies current auditory or visual hallucinations. He reports paranoid ideations. He has passive suicidal ideations. Denies homicidal ideations He is alert and oriented x 4. ASSESSMENT AND PLAN: Will increase dose of wellbutrin to 150mg po bid from 200mg po qday. Continue current medications Continue safety precautions Encourage participation in groups Monitor for progress.
[2018-04-08] MEDS: PALIPERIDONE 6 MG TAB.ER.24 PO SCH (20:49)
[2018-04-08] MEDS: buPROPion SR 150 MG TABLET.ER PO SCH (20:49)
[2018-04-08] MEDS: NALTREXONE HCL 50 MG TAB PO SCH (20:50)
[2018-04-08 20:54] VITALS: RESP 18
[2018-04-08] MEDS: NICOTINE POLACRILEX 2 MG GUM BUCCAL PRN (22:05)
[2018-04-09 08:12] VITALS: BP 119/67; PULSE 99
[2018-04-09] MEDS: DIVALPROEX ER 500 MG TAB.ER.24H PO SCH (08:38)
[2018-04-09] MEDS: cloNIDine HCL 0.1 MG TAB PO SCH (08:38)
[2018-04-09] MEDS: buPROPion SR 150 MG TABLET.ER PO SCH (08:38)
[2018-04-09] MEDS: BENZTROPINE MESYLATE 1 MG TAB PO SCH (08:38)
[2018-04-09] MEDS: PANTOPRAZOLE 40 MG TABLET PO SCH (08:49)
--- NOTE | 2018-04-09 11:55 | P.DS ---
Providers Date of admission: 03/20/18 06:57 Expected date of discharge: 04/09/18 Attending physician: Carlos Castellanos DO Consults: 03/20/18 07:19 Consult Physician Routine Consulting Provider: Jasmin Ramos Consult Reason/Comments: medical management Do you want consulting provider notified?: Already Contacted Primary care physician: Stated None - Discharge Diagnosis(es) (1) Schizoaffective disorder, bipolar type Chief Complaint and Reason for Hospitalization: [] This is a 32-year-old male who presents to the emergency department for mental health evaluation. Patient states that he was discharged from [facility] this past Monday. He states he is from [place], [place]. Patient states for the past couple of days he has been wandering around [place]. He states that today, he received multiple rides and walked from [place] to [place]. Patient reports being hospitalized 6 times since June for mental health. He states that while at [facility] his medications were changed around. He states that they stopped his Seroquel and started him on Strattera. Patient states that he did not like the way Strattera made him feel but that the staff at [facility] would not listen to him. Patient states that throughout the day today he has been having suicidal and homicidal thoughts. Patient states he is not normally an aggressive person and having homicidal thoughts are not normal for him. He reports having thoughts of throwing himself in front of traffic. Patient also reports auditory hallucinations. He states that he hears random, multiple voices but cannot make out what they're saying. He denies visual hallucinations. He denies alcohol or illicit drug use. 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 Patient states he has not had his medication since Monday when he was discharged. Patient denies any other medical issues. Denies any recent illnesses or infections. Denies recent fevers or chills, chest pain or shortness of breath, abdominal pain, nausea or vomiting. Course of Treatment: [This 32-year-old male was admitted to [facility] therapy and spent 7 days just detoxing from street drugs. He was difficult to treat at times because his behavior was inappropriate and required one-to-one within the first 10 days hospitalization. He had a fair amount of anxiety which are treated with clonidine 0.1 mg 3 times a day which decreased his anxiety from 9 out of 10 to 2 out of 10. He is placed on ReVia because as hard time staying away from alcohol and narcotics thus has more of a deterrent possibly was added benefit to more restful sleep. He was titrated to 12 mg of Invega which appeared to calm him down. He is also on Wellbutrin and Strattera combination for focusing concentration titration. He was placed on Depakote and titrated to 2000 mg a day for mood stability and anxiety which greatly helped his mental illness. The patient presents alert, pleasant, and cooperative. There calmly seated without any agitated behavior. The reports that his] mood is good. Affect is congruent and euthymic. [He] deny having any suicidal or homicidal ideation intent or plan. [He] denies any auditory or visual hallucinations. There is no evidence of any delusional thought content. [His] thought process is linear and goal-directed. [His] speech is fluent and nonpressured. [His] memory and concentration is grossly intact for the purposes of this session. ] Physical/Medical Condition on Discharge:[ He has no medical condition that discharge and no physical ailments] Functional Condition on Discharge: [Able to function independently and intellectually stable] Discharge Medications: [She was below] Number of Routinely Scheduled Antipsychotic Medication(s) Prescribed: [One antipsychotic written] Appropriate Justification for discharging the Patient on Two or More Antipsychotic Medications: [Only one antipsychotic written] Discharge Diagnosis: [Schizoaffective bipolar type] Risk Factors: [Street drugs and alcohol] Recommendations/Follow-up/Aftercare: [[facility] team is following him from [facility]] Current Visit: Yes Status: Chronic Priority: Low (2) Suicidal behavior with attempted self-injury Current Visit: Yes Status: Resolved Priority: Low Patient Condition at Discharge: Good Plan - Discharge Summary Discharge Rx Participant: Yes New Discharge Prescriptions: New Benztropine Mesylate [Cogentin] 1 mg PO BID 30 Days #30 tab buPROPion SR [Wellbutrin SR] 150 mg PO BID 30 Days #30 tablet.er cloNIDine HCL [Catapres] 0.1 mg PO TID 30 Days #90 tab Divalproex ER [Depakote ER] 2,000 mg PO DAILY 30 Days #120 tab.er.24h Naltrexone HCl [Revia] 50 mg PO 2100 30 Days #30 tab Nicotine 7Mg/24Hr Patch [Habitrol 7Mg/24Hr Patch] 1 patch TRANSDERM DAILY 30 Days #30 patch.td24 Paliperidone [Invega] 12 mg PO 2100 30 Days #60 tab.er.24 Continue Atomoxetine HCl [Strattera] 40 mg PO DAILY 30 Days #30 capsule Mirtazapine [Remeron] 30 mg PO HS 30 Days #30 tablet Discontinued chlorproMAZINE [Thorazine] 25 mg PO BID PRN PRN Reason: Agitation buPROPion HCL [Wellbutrin Sr] 100 mg PO DAILY Divalproex Sodium [Depakote] 500 mg PO TID LORazepam [Ativan] 0.5 mg PO BID Discharge Medication List Atomoxetine HCl [Strattera] 40 mg PO DAILY 30 Days #30 capsule 04/09/18 [Rx] Benztropine Mesylate [Cogentin] 1 mg PO BID 30 Days #30 tab 04/09/18 [Rx] Divalproex ER [Depakote ER] 2,000 mg PO DAILY 30 Days #120 tab.er.24h 04/09/18 [ Rx] Mirtazapine [Remeron] 30 mg PO HS 30 Days #30 tablet 04/09/18 [Rx] Naltrexone HCl [Revia] 50 mg PO 2100 30 Days #30 tab 04/09/18 [Rx] Nicotine 7Mg/24Hr Patch [Habitrol 7Mg/24Hr Patch] 1 patch TRANSDERM DAILY 30 Days #30 patch.td24 04/09/18 [Rx] Paliperidone [Invega] 12 mg PO 2100 30 Days #60 tab.er.24 04/09/18 [Rx] buPROPion SR [Wellbutrin SR] 150 mg PO BID 30 Days #30 tablet.er 04/09/18 [Rx] cloNIDine HCL [Catapres] 0.1 mg PO TID 30 Days #90 tab 04/09/18 [Rx] Follow up Appointment(s)/Referral(s): Intake, Intake [Other] - 04/17/18 2:00 pm (Pt has an intake today at [facility]. Transporter to take him to intake and then return him to his parent's home after. Appt w/ Dr. Bergman ) None,Stated [Primary Care Provider] - 1-2 days Patient Instructions/Handouts: How to Stop Smoking (DC), Depression (DC), Suicide Prevention (DC) Activity/Diet/Wound Care/Special Instructions: Activity and diet as tolerated. Avoid the use of street drugs and alcohol. Remove all firearms from the home. Take all medications as prescribed. Follow up with your Primary Care Physician in one to two days. When you are in need of refills on your medications please contact your medical provider and/or your outpatient psychiatrist to have this done. Please go to the scheduled outpatient appointment for aftercare. If symptoms return or become worse call the crisis line and/ or go the nearest emergency room for an evaluation. l Discharge Disposition: OTHER INSTITUTION NOT DEFINED
[2018-04-09] MEDS: NICOTINE POLACRILEX 2 MG GUM BUCCAL PRN (12:39)
== END 2018-04-09 14:25 | disposition home or self-care (01) | DRG 885 ==
LOC: EC 01:09 → 3MHU 06:57
PROVIDERS: ADMIT Psychiatry & Neurology Psychiatry; ATTEND Psychiatry & Neurology Psychiatry
DX: F25.0 Schizoaffective disorder, bipolar type (principal); R45.851 Suicidal ideations; R45.850 Homicidal ideations; G40.909 Epilepsy, unspecified, not intractable, without status epilepticus; F43.10 Post-traumatic stress disorder, unspecified; F06.4 Anxiety disorder due to known physiological condition; F40.10 Social phobia, unspecified; F17.210 Nicotine dependence, cigarettes, uncomplicated; Z71.6 Tobacco abuse counseling; Z91.19 Patient's noncompliance with other medical treatment and regimen; Z79.899 Other long term (current) drug therapy; Z88.5 Allergy status to narcotic agent; Z88.8 Allergy status to other drugs, medicaments and biological substances
CPT/HCPCS: 36415; 80048; 80053; 80061; 80164; 80306; 81003; 82075; 83036; 84443; 85025; 85027; 93005; 99285